=== PATIENT | female | born 1975 | race Caucasian/White ===

== ENCOUNTER 2020-10-26 23:56 | Emergency (ER) | payer SELFPAY ==
[2020-10-27 00:01] VITALS: BP 145/109; PULSE 110; RESP 22; TEMP 36.6; O2SAT 95; BMI 33.7
--- NOTE | 2020-10-27 00:03 | XRR_ITS ---
PROCEDURE INFORMATION: Exam: XR Left Ankle Exam date and time: 10/27/2020 12:15 AM Age: 45 years old Clinical indication: Injury or trauma; Fall; Blunt trauma; Ankle; Left TECHNIQUE: Imaging protocol: XR Left ankle. Views: 3 or more views. COMPARISON: No relevant prior studies available. FINDINGS: Bones/joints: There is an acute nondisplaced oblique fracture of the distal left fibular diametaphysis. Soft tissues: Normal. XR/XR ankle LT min 3V* [id number] IMPRESSION: Acute nondisplaced oblique fracture of the distal left fibular diametaphysis.
[2020-10-27 00:07] VITALS: PULSE 68
--- NOTE | 2020-10-27 00:10 | ED_ITS ---
HPI - Extremity Problem General: Chief complaint: Extremity Injury, Lower Stated complaint: LEG INJURY Time Seen by Provider: 10/26/20 23:59 Source: patient and EMS Mode of arrival: EMS Limitations: no limitations History of Present Illness: HPI Narrative: 45-year-old female states she is on sidewalk on the side of the hill and tripped and fell. States she twisted her left ankle and felt a pop. She states she is not able to stand or bear any weight on that left leg. Denies any other injuries. Rates her pain a 7 out of 10. Associated symptoms: Deny chest pain, fever(s) or rash Review of Systems Const: Denies: fever(s), chills, body aches or change in appetite Eyes: Denies: blurry vision or eye discomfort ENMT: Denies: throat pain or dental pain Card: Denies: chest pain Resp: Denies: dyspnea GI: Denies: abdominal pain, nausea, vomiting or diarrhea : Denies: dysuria Musc: Reports: joint pain; Denies: neck pain or back pain Skin/Breast: Denies: rash Neuro: Denies: headache(s) Psych: Denies: depression Leland/Lymph: Denies: easy bruising All/Imm: Denies: urticaria Physical Exam Const: COMMON NORMALS: no acute distress, patient oriented x3 and healthy appearing HENMT: COMMON NORMALS: normocephalic and atraumatic HEAD & SCALP: normocephalic and atraumatic Eye: COMMON NORMALS: Equal, round and reactive pupils present and EOMs intact bilaterally PUPIL: Yes Equal, round and reactive pupils present Neck/C-Spine: COMMON NORMALS: full ROM and supple Chest: COMMONS NORMALS: normal inspection of the chest and normal palpation of entire chest wall Resp: COMMON NORMALS: normal respiratory effort, No retractions, No use of accessory muscles and clear to auscultation bilaterally AUSCULTATION: clear to auscultation bilaterally Cardio: COMMON NORMALS: regular rate, regular rhythm and No murmurs present (Cardio) RATE: regular rate RHYTHM: regular rhythm GI: COMMON NORMALS: Normal to inspection, nondistended, normoactive bowel sounds present, Soft to palpation, non-tender and no masses PALPATION: Yes Soft to palpation Extremity: NARRATIVE EXTREMITY EXAM: Tenderness and swelling to left lateral ankle distal pulses intact no dislocation Neuro: COMMON NORMALS: patient oriented x3, moves all extremities and no focal motor deficits Psych: COMMON NORMALS: mental status grossly normal, Normal thought process present and cooperative THOUGHT PROCESS: Normal thought process present Skin: COMMON NORMALS: no rashes or lesions noted and no wounds GENERAL SKIN EXAM: no rashes or lesions noted Course 2 Vital Signs: Vital signs: Vital Signs Temperature 97.8 F 10/27/20 00:01 Pulse Rate 68 10/27/20 00:07 Respiratory Rate 22 H 10/27/20 00:01 Blood Pressure 145/109 10/27/20 00:01 Pulse Oximetry 95 10/27/20 00:01 MDM - Extremity (Nontraumatic) MDM Narrative: Medical decision making narrative: Kristi presents with a distal fibula fracture from a fall. She has no other signs of major injury from her fall. We will place her in a posterior splint with stirrup she is to follow-up with orthopedics. She understands agrees to plan. Imaging Data^: Xray Ortho: Attestation: I personally reviewed and interpreted this imaging study as follows: My impression: distal fibular fx Discharge Plan Discharge Patient Disposition: Home Clinical Impression: Ankle fracture Qualifiers: Encounter type: initial encounter Fracture type: closed Laterality: left Qualified Code(s): S82.892A - Other fracture of left lower leg, initial encounter for closed fracture Condition: Stable Prescriptions: [place] 5-325 mg tablet 1 tab PO Q6H PRN (Reason: pain) Qty: 14 RF: 0 Discharge Orders: Discharge ED (Routine); Ordered 10/27/20 Ordered By: Fatou Hernandez Referrals: Delilah Dickinson MD [Physician] - 1-3 days Ruben Cano [Primary Care Provider] - Discharge Diet: Advance as tolerated Discharge Activity: Resume usual activity Patient Instructions: Ankle Fracture (ED), Opioid Safety Coding Level of Care Code ED Plush Weaver for Jamelg Fwd Exam Comprehensive
[2020-10-27 01:00] VITALS: RESP 18; O2SAT 97
[2020-10-27] MEDS: HYDROmorphone 1 mg/mL INJ 1 mL IVP (01:00)
[2020-10-27 01:02] VITALS: BP 142/98; PULSE 98; RESP 16; O2SAT 94
[2020-10-27 01:12] VITALS: BP 138/88; PULSE 68; RESP 16; O2SAT 96
--- NOTE | 2020-10-28 12:20 | DCPLANNER ---
manager news had message to schedule a follow up appointment for patient with ortho. manager news called the ortho clinic, spoke with Ashely, gave clinic patients information. manager news was told that patients information would be printed and reviewed. Clinic will call patient with appointment information.
--- NOTE | 2020-10-29 07:53 | DCPLANNER ---
Patient has a follow up appointment scheduled for October at 10:[address] Dickinson. Clinic will call patient with appointment information.
--- NOTE | 2020-12-05 09:26 | DCPLANNER ---
Patient had a follow up appointment scheduled for 10.31.[address] Dickinson at ortho. Patient did attend appointment.
== END 2020-10-27 01:19 | disposition home or self-care (01) ==
PROVIDERS: Emergency Provider Emergency Medicine; PCP Family Medicine
DX: S82.832A Other fracture of upper and lower end of left fibula, initial encounter for closed fracture (principal); X50.1XXA Overexertion from prolonged static or awkward postures, initial encounter
CPT/HCPCS: 29515; 73610; 96374; 99283; E0114; J1170

== ENCOUNTER → 2020-10-31 11:11 | Outpatient (BNVA) | payer SELFPAY | PROVIDERS: PCP Family Medicine; Referring Provider Family Medicine; Visit Provider Specialist | DX: S82.832D Other fracture of upper and lower end of left fibula, subsequent encounter for closed fracture with routine healing (principal); X58.XXXD Exposure to other specified factors, subsequent encounter | CPT/HCPCS: 73610 ==

== ENCOUNTER 2020-10-31 15:19 | Outpatient (CLI) | payer SELFPAY | END 2020-10-31 15:20 | disposition home or self-care (01) | LOC: SPT 15:20 | PROVIDERS: PCP Family Medicine; Visit Provider Specialist | DX: Z46.89 Encounter for fitting and adjustment of other specified devices (principal); S82.892D Other fracture of left lower leg, subsequent encounter for closed fracture with routine healing; X58.XXXD Exposure to other specified factors, subsequent encounter | CPT/HCPCS: 97760; L4361 ==

== ENCOUNTER 2022-10-01 21:12 | Inpatient (IN) | payer MEDICAID, SELFPAY ==
[2022-10-01 21:13] VITALS: BMI 42.1
--- NOTE | 2022-10-01 21:13 | W.ED.ABDPA2 ---
HPI - Abdominal Pain General: Chief Complaint: Abdominal Pain Stated Complaint: ABD PAIN Time Seen by Provider: 10/01/22 21:13 History of Present Illness: Ms. Villar is a 47-year-old lady presenting to the emergency department for evaluation of abdominal pain. She reports onset of symptoms yesterday and has subsequently been worsening. Pain is right lower quadrant and worse with movement and palpation. She notes associated nausea and subjective fevers. Intensity symptoms is severe. Course has worsened. Temporary relief with EMS administered fentanyl and Zofran worse again with moving over to ED bed. No other specific changes in health, exacerbating, or alleviating factors identified. Onset (ago): day(s) Pain Consistency: constant Location: RLQ Severity: severe Quality: sharp Radiation: none Migration to: no migration Exacerbating factors: movement Relieving factors: nothing Associated Symptoms: Reports chills and nausea Review of Systems General: Reports: 10 or more systems reviewed and unremarkable except in HPI and below Const: Reports: chills GI: Reports: nausea PFSH ED PFSH: Medical History (Updated 10/09/22 @ 14:48 by TANIA Chopra) Acute appendicitis Dental abscess Fracture of ankle, lateral malleolus, left, closed HTN (hypertension) Leukocytosis Perforated appendicitis Surgical History (Updated 10/01/22 @ 21:22 by Tylor Maya MD) H/O: hysterectomy Family History Father CAD (coronary artery disease) Hypertension Mother CAD (coronary artery disease) Hypertension Seizures Social History Smoking and tobacco status: current some day smoker Alcohol intake: former Physical Exam Const: COMMON NORMALS: alert GENERAL APPEARANCE: cooperative, well developed, in distress (Uncomfortable due to pain) and ill appearing HENMT: COMMON NORMALS: normocephalic and atraumatic HEAD & SCALP: normocephalic and atraumatic Eye: COMMON NORMALS: conjunctivae normal CONJUNCTIVA: Yes conjunctivae normal SCLERA: sclerae normal Neck/C-Spine: COMMON NORMALS: supple GENERAL: Yes trachea midline Resp: COMMON NORMALS: clear to auscultation bilaterally EFFORT & INSPECTION: Yes able to speak in complete sentences AUSCULTATION: clear to auscultation bilaterally Cardio: COMMON NORMALS: regular rhythm RATE: tachycardic RHYTHM: regular rhythm GI: COMMON NORMALS: Soft to palpation PALPATION: Yes Soft to palpation, Yes Tenderness to palpation present (GI), Yes Guarding due to palpation present (GI) and No Rigid due to palpation Extremity: GENERAL: Yes normal exam except as noted and No edema Neuro: COMMON NORMALS: moves all extremities SENSORIUM/ORIENTATION: Yes alert and No Orientation impaired Psych: COMMON NORMALS: mental status grossly normal and Normal thought process present THOUGHT PROCESS: Normal thought process present Course Vital Signs: Vital signs: Vital Signs Temperature 97.7 F 10/07/22 12:00 Pulse Rate 84 10/07/22 12:00 Respiratory Rate 18 10/07/22 12:21 Blood Pressure 143/91 10/07/22 12:00 Pulse Oximetry 97 10/07/22 12:00 Oxygen Delivery Me thod 10/07/22 12:00 Oxygen Flow Rate 3 10/06/22 08:25 MDM - Abdominal Pain Medical Decision Making 47-year-old lady presenting with right lower quadrant pain. Tenderness to palpation with guarding and localized peritonitis however without evidence of acute surgical abdomen as noted. She is quite uncomfortable due to pain. Patient is nontoxic. Labs notable for leukocytosis and hemoconcentration. Mild evidence of dehydration on metabolic panel. Chest x-ray with no lobar consolidation or pneumothorax. CT demonstrates appendix with microperforation. Discussed case with general surgery on-call. Patient to be admitted to the hospitalist service for likely conservative management though may need operative management if progression. This was discussed with the patient. Patient treated with analgesia and antibiotics as well as IV fluids with some improvement. The results of ED evaluation were discussed with the patient including plan for admission due to requirement for level of care not available if discharged to prevent significant worsening/deterioration. Patient agreeable with plan. Discussed with hospitalist service who was agreeable to admit patient. Medical Records I reviewed the patient's medical records. Lab Data I reviewed the patient's lab results. 10/01/22 20:04 10/01/22 20:04 Labs/Radiology: Radiology Impressions Chest X-Ray 10/01/22 21:20 IMPRESSION: 1. Mild cardiomegaly suspected. 2. Negative for infiltrate Venous Duplex 10/03/22 10:15 IMPRESSION: No evidence of deep vein thrombosis, right lower extremity. Abdomen/Pelvis CT 10/05/22 11:21 IMPRESSION: 1. As indicated on the prior examination ruptured appendicitis with persistent abscess at the rupture site measuring 3.0 x 2.1 cm. 2. Additional development of a large RIGHT lower quadrant abscess measuring 5.0 x 9.4 cm. 3. Dilated RIGHT ureter extends along the lateral aspect of the abscess cavity. The ureter is dilated as a sympathetic response to the adjacent abscess. Notified Celestino Weber DO at 10/05/2022 2:[address] 10/06/22 12:30 IMPRESSION: 1. Uncomplicated 8 [place] pelvic pigtail drain placement. 2. Recommend draining flushing 8-10 cc normal saline 1-2 times per day Laboratory Results WBC 14.2 10^3/uL (4.0-10.0) H 10/01/22 20:04 RBC 5.27 10^6/uL (4.1-5.3) 10/01/22 20:04 Hgb 15.4 g/dL (11.5-15.3) H 10/01/22 20:04 Hct 47.5 % (37.0-47.0) H 10/01/22 20:04 MCV 90.1 fl (81-99) 10/01/22 20:04 MCH 29.2 pg (28.0-34.0) 10/01/22 20:04 MCHC 32.4 g/dL (30.0-36.0) 10/01/22 20:04 RDW 12.5 % (12.1-15.1) 10/01/22 20:04 Plt Count 335 10^3/cmm (130-400) 10/01/22 20:04 MPV 10.6 fL (7.4-10.4) H 10/01/22 20:04 Neut % (Auto) 86.8 % 10/01/22 20:04 Lymph % (Auto) 6.1 % 10/01/22 20:04 Whiteside % (Auto) 6.1 % 10/01/22 20:04 Eos % (Auto) 0.4 % 10/01/22 20:04 Baso % (Auto) 0.2 % 10/01/22 20:04 Neut # (Auto) 12.32 10^3/uL (1.8-7.7) H 10/01/22 20:04 Lymph # (Auto) 0.9 10^3/uL (0.8-4.8) 10/01/22 20:04 Whiteside # (Auto) 0.9 10^3/uL (0.2-0.9) 10/01/22 20:04 Eos # (Auto) 0.1 10^3/uL (0.0-0.8) 10/01/22 20:04 Baso # (Auto) 0.0 10^3/uL (0.0-0.1) 10/01/22 20:04 Nucleated RBC % (auto) 0 % 10/01/22 20:04 Nucleated RBCs # 0.0 /100WBC 10/01/22 20:04 Sodium 138 mmol/L (136-145) 10/01/22 20:04 Potassium 4.1 mmol/L (3.5-5.1) 10/01/22 20:04 Chloride 103 mmol/L (98-107) 10/01/22 20:04 Carbon Dioxide 21 mmol/L (22-29) L 10/01/22 20:04 Anion Gap 18.1 (5-19) 10/01/22 20:04 BUN 14 mg/dL (6-20) 10/01/22 20:04 Creatinine 1.0 mg/dL (0.5-0.9) H 10/01/22 20:04 GFR Calculation 60.0 mL/min (90-130) L 10/01/22 20:04 Glucose 107 mg/dL (65-115) 10/01/22 20:04 Calculated Osmolality 287 mOsm/kg (285-295) 10/01/22 20:04 Lactic Acid 1.2 mmol/L (0.5-2.2) 10/01/22 21:40 Calcium 9.3 mg/dL (8.5-10.5) 10/01/22 20:04 Iron 30 ug/dL (37-145) L 10/01/22 20:04 TIBC 318 mcg/dl 10/01/22 20:04 % Saturation 9.4 % (20-50) L 10/01/22 20:04 Unsat Iron Binding 288 ug/dL (112-347) 10/01/22 20:04 Total Bilirubin 1.0 mg/dL (0.15-1.2) 10/01/22 20:04 AST 15 U/L (0-32) 10/01/22 20:04 ALT 20 U/L (0-33) 10/01/22 20:04 Alkaline Phosphatase 147 U/L (35-105) H 10/01/22 20:04 Total Protein 7.9 g/dL (6.6-8.7) 10/01/22 20:04 Albumin 4.2 g/dL (3.5-5.2) 10/01/22 20:04 Globulin 3.7 g/dL (1.3-4.6) 10/01/22 20:04 Lipase 14 U/L (13-60) 10/01/22 20:04 Vitamin B12 323 pg/mL (232-1245) 10/01/22 20:04 Folate 12.9 ng/mL (4.8-37.3) 10/01/22 21:40 Procalcitonin 0.13 ng/mL (0-0.5) 10/01/22 20:04 TSH 1.41 uIU/mL (0.27-4.20) 10/01/22 20:04 Discharge Plan Discharge Patient Disposition: Admitted As Inpatient Admit Provider: Johnathan Sifuentes Clinical Impression: Acute appendicitis, Abdominal pain, Sepsis Condition: Stable Discharge Diet: Regular Discharge Activity: Limit activity as instructed Coding Level of Care Code ED Special Projects Manager for Andi Velasquez
[2022-10-01 21:16] VITALS: BP 136/100; RESP 16; TEMP 36.7; O2SAT 96
--- NOTE | 2022-10-01 21:20 | CTR_ITS ---
PROCEDURE INFORMATION: Exam: CT Abdomen And Pelvis With Contrast Exam date and time: 10/01/2022 9:32 PM Age: 47 years old Clinical indication: Abdominal pain; Localized; Right lower quadrant (rlq); Prior surgery; Surgery type: Gb. Hysterectomy; Patient HX: Intractable rlq pain with fever; Additional info: Rlq pain, severe TECHNIQUE: Imaging protocol: Computed tomography of the abdomen and pelvis with contrast. Radiation optimization: All CT scans at this facility use at least one of these dose optimization techniques: automated exposure control; mA and/or kV adjustment per patient size (includes targeted exams where dose is matched to clinical indication); or iterative reconstruction. Contrast material: OMNI 350; Contrast volume: 100 ml; Contrast route: INTRAVENOUS (IV); REPORTING DATA: Count of CT and Cardiac NM exams in prior 12 months: This patient has received 0 known CTs and 0 known cardiac nuclear medicine studies in the 12 months prior to the current study. COMPARISON: ES surgery / GI images 11/23/2016 9:48 AM RADIATION DOSE METRICS: Total DLP (mGy-cm): 773.99 FINDINGS: Lungs: Several right lower lobe calcified granulomas. Liver: Normal. No mass. Gallbladder and bile ducts: Cholecystectomy. Pancreas: Normal. No ductal dilation. Spleen: Normal. No splenomegaly. Adrenal glands: Normal. No mass. Kidneys and ureters: Normal. No hydronephrosis. Stomach and bowel: Unremarkable. No obstruction. No mucosal thickening. Appendix: Appendix dilated to 10 mm with surrounding edema and possible minimal extraluminal air suggestive of acute appendicitis with microperforation, negative for abscess. Intraperitoneal space: Unremarkable. No free air. No significant fluid collection. Vasculature: Unremarkable. No abdominal aortic aneurysm. Lymph nodes: Unremarkable. No enlarged lymph nodes. Urinary bladder: Unremarkable as visualized. Reproductive: Unremarkable as visualized. Bones/joints: Unremarkable. No acute fracture. Soft tissues: Unremarkable. CT/CT abdomen pelvis w con* [id number] IMPRESSION: 1. Appendix dilated to 10 mm with surrounding edema and possible minimal extraluminal air suggestive of acute appendicitis with microperforation, negative for abscess. 2. Several right lower lobe calcified granulomas. 3. Cholecystectomy.
--- NOTE | 2022-10-01 21:20 | XRR_ITS ---
PROCEDURE INFORMATION: Exam: XR Chest Exam date and time: 10/01/2022 9:24 PM Age: 47 years old Clinical indication: Other: High heart rate, ; additional info: Tachycardia, right side pain TECHNIQUE: Imaging protocol: Radiologic exam of the chest. Views: 1 view. COMPARISON: No relevant prior studies available. FINDINGS: Lungs: Unremarkable. No consolidation. Pleural spaces: Unremarkable. No pleural effusion. No pneumothorax. Heart/Mediastinum: Mild cardiomegaly suspected. Bones/joints: Unremarkable. XR/XR chest 1V portable [id number] IMPRESSION: 1. Mild cardiomegaly suspected. 2. Negative for infiltrate
[2022-10-01 21:27] LABS: Basophils % 0.2 %; Eosinophils # 0.1 10^3/uL (0.0-0.8); Eosinophils % 0.4 %; Hematocrit 47.5 % (37.0-47.0); Hemoglobin 15.4 g/dL (11.5-15.3); Lymphocytes # 0.9 10^3/uL (0.8-4.8); Lymphocytes % 6.1 %; Mean Corpuscular HGB Conc 32.4 g/dL (30.0-36.0); Mean Corpuscular Hemoglobin 29.2 pg (28.0-34.0); Mean Corpuscular Volume 90.1 fl (81-99); Mean Platelet Volume 10.6 fL (7.4-10.4); Monocytes # 0.9 10^3/uL (0.2-0.9); Monocytes % 6.1 %; Neutrophils # 12.32 10^3/uL (1.8-7.7); Neutrophils % 86.8 %; Nucleated Red Blood Cells % 0 %; Platelet Count 335 10^3/cmm (130-400); Red Blood Count 5.27 10^6/uL (4.1-5.3); Red Cell Distribution Width 12.5 % (12.1-15.1); White Blood Count 14.2 10^3/uL (4.0-10.0)
[2022-10-01] MEDS: HYDROmorphone 1 mg/mL INJ 1 mL 0.5 MG IVP (21:29)
[2022-10-01 21:40] LABS: Alanine Aminotransferase 20 U/L (0-33); Albumin Level 4.2 g/dL (3.5-5.2); Alkaline Phosphatase 147 U/L (35-105); Anion Gap 18.1 (5-19); Aspartate Amino Transferase 15 U/L (0-32); Blood Urea Nitrogen 14 mg/dL (6-20); Calcium 9.3 mg/dL (8.5-10.5); Carbon Dioxide 21 mmol/L (22-29); Chloride 103 mmol/L (98-107); Globulin 3.7 g/dL (1.3-4.6); Glucose 107 mg/dL (65-115); Lipase 14 U/L (13-60); Osmolality Calculated 287 mOsm/kg (285-295); Potassium 4.1 mmol/L (3.5-5.1); Sodium 138 mmol/L (136-145); Total Protein 7.9 g/dL (6.6-8.7)
[2022-10-01] MEDS: iohexol 350 mg/mL 500 mL Btl (per mL) IV (21:40)
[2022-10-01] MEDS: sodium chloride 0.9% 1,000 ML 999 ML IV (21:53)
[2022-10-01] MEDS: piperacillin-tazobactam 4.5 GM in sodium chloride 0.9% (plus) 50 ML IV (21:53)
[2022-10-01 21:54] VITALS: RESP 16
[2022-10-01] MEDS: fentaNYL 50 mcg/mL INJ 2mL 100 MCG IVP (21:54)
[2022-10-01 22:03] VITALS: BP 111/75; PULSE 113; RESP 18; O2SAT 91
[2022-10-01 22:20] VITALS: BP 122/68; O2SAT 93
[2022-10-01 22:30] LABS: Lactic Sepsis W/Reflex 1.2 mmol/L (0.5-2.2)
[2022-10-01] MEDS: sodium chloride 0.9% 1,000 ML 125 ML IV (23:02)
--- NOTE | 2022-10-01 23:04 | P.HP_ITS ---
Providers/Chief Complaint Admitting Physician: Johnathan Sifuentes MD Primary Care Provider: Ruben Cano Chief Complaint: ABD PAIN History of Present Illness Kristi Villar is a 47 year old female with no significant past medical history other than hypertension not on medications presents to the ER today because of ongoing abdominal pain, nausea and vomiting for last 1 day along with subjective fever. Patient cannot recollect when she had a last bowel movement. In the ER patient was found to have tachycardia and CT abdomen pelvis was consistent with acute appendicitis with microperforation. Surgery was consulted and medicine team was asked for admission for further evaluation and management. Review of Systems General: Reports: 10 or more systems reviewed and unremarkable except in HPI and below Const: Denies: fever(s), chills, body aches, change in appetite, change in weight, malaise, night sweats, diaphoresis, change in sleep pattern, daytime sleepiness or snoring Eyes: Denies: change in vision, blurry vision, photophobia, eye discomfort or eye discharge ENMT: Denies: throat pain, enlarged tonsils, hoarseness, mouth pain, oral sores, dry mouth, tinnitus, nasal congestion or post nasal drip Card: Denies: chest pain, palpitations, irregular heart rhythm, edema, s welling of feet/ankles, lightheadedness, syncope, pre-syncope, dyspnea on exertion, orthopnea, leg pain with exertion or acrocyanosis Resp: Denies: dyspnea, productive cough, non-productive cough, wheezing, stridor, pain on inspiration, change in phlegm color, hemoptysis or chest congestion GI: Denies: abdominal pain, nausea, vomiting, hematemesis, coffee ground emesis, dysphagia, heartburn, diarrhea, constipation, bloating, GI cramping, change in bowel habits, pain on defecation, hematochezia or melena : Denies: flank pain, dysuria, urinary frequency, urinary urgency, urinary hesitancy, nocturia or hematuria Musc: Denies: neck pain, back pain, extremity pain, joint pain, joint swelling, joint redness, joint stiffness or limited range of motion Neuro: Denies: headache(s), numbness in extremities, weakness in extremities, sensory changes, lack of coordination, difficulty walking, frequent falls, dizziness, vertigo, confusion, Slurred speech present, difficulty communicating thoughts or seizure-like activity Psych: Denies: anxiety, depression, mood swings, panic attacks, hopelessness or irritability Endo: Denies: polyuria, polydipsia, tired all the time, cold intolerance, excessive sweating, flushing or heat intolerance Leland/Lymph: Denies: easy bruising or easy bleeding All/Imm: Denies: tongue swelling, facial swelling or acute wheezing Medications/Allergies Home Medications Medication Instructions Recorded Confirmed Last Taken Type Cam Walker #1 ea 10/31/20 10/31/20 Unknown Rx Allergies Allergy/AdvReac Type Severity Reaction Status Date / Time morphine Allergy ADR-Gastrointestinal Verified 10/31/20 11:31 Upset PFSH Acute PFSH: Medical History (Updated 10/01/22 @ 23:17 by Johnathan Sifuentes MD) Dental abscess HTN (hypertension) Surgical History (Updated 10/01/22 @ 21:22 by Tylor Maya MD) H/O: hysterectomy Family History Father CAD (coronary artery disease) Hypertension Mother CAD (coronary artery disease) Hypertension Seizures Social History Smoking and tobacco status: current some day smoker Alcohol intake: former Vitals/I&O/Wt Last Vital Signs Temp 98.1 F 10/01/22 21:16 Pulse 113 H 10/01/22 22:03 Resp 18 10/01/22 22:03 BP 122/68 10/01/22 22:20 Pulse Ox 93 10/01/22 22:20 O2 Del Method 10/01/22 22:20 O2 Flow Rate 2 10/01/22 22:20 10/01/22 10/01/22 10/02/22 14:59 22:59 06:59 Intake Total 699.35 / 699.35 Balance 699.35 / 699.35 Weight last 48 hrs Weight 107.955 kg Physical Exam Narrative: General: In acute distress because of abdominal pain and nausea, AOx3 HEENT: PERRLA, pupils bilaterally equal and reactive Chest: Normal vesicular breath sounds, no added sounds, equal good air entry bilaterally CVS: S1-S2 regular, no murmurs, no tachycardia, no gallops, no rubs Abdomen: Soft, tender in right lower quadrant, guarding present, no rebounding, no organomegaly, bowel sounds present but sluggish Neuro: No focal deficits, no facial deformity, AO x3, power 5/5 in all limbs Sepsis: Date exam was performed: 10/01/22 Time exam was performed: 23:16 Data 10/01/22 20:04 10/01/22 20:04 Micro: Microbiology 10/01/22 21:40 Blood Culture - Preliminary Blood SPECIMEN COLLECTED 10/01/22 21:40 Blood Culture - Preliminary Blood SPECIMEN COLLECTED A&P Assessment and plan (1) Sepsis: Present on admission. Ruled in with tachycardia, fever, leukocytosis. Lactate negative. Does not require sepsis bolus as patient is currently hemodynamically stable. Did receive half of the sepsis bolus. CT abdomen pelvis appreciated. (2) Acute appendicitis: As seen on CT abdomen pelvis with microperforation without abscess. Surgery consulted. Possible plan for conservative treatment. Check blood culture, urine Legionella and bacterial antigen, procalcitonin, urinalysis, urine culture. NPO. Start on D5 NS at 75 cc/h. Zosyn empirically. Dilaudid 0.5 every 4 hours as needed for pain control Out of bed for early ambulation. Serial abdominal examination Plan Full code. NPO. Famotidine for PUD prophylaxis CT for DVT prophylaxis. Hold off on medical prophylaxis given concern for possible OR. Attestations Medical Necessity Statement*: Admission for more than 2 midnights for management of sepsis in setting of acute appendicitis with microperforation without abscess Diagnoses Sepsis A41.9 Acute appendicitis K35.80
[2022-10-01 23:22] VITALS: BP 160/87; PULSE 120; RESP 22; TEMP 36.9; O2SAT 100
[2022-10-01 23:51] LABS: Procalcitonin 0.13 ng/mL (0-0.5)
[2022-10-01 23:55] LABS: Thyroid Stimulating Hormone 1.41 uIU/mL (0.27-4.20)
[2022-10-02] VITALS (12 sets, daily range): BP systolic 113–130; BP diastolic 74–89; PULSE 99–128; RESP 14–28; TEMP 36.6–39.2; O2SAT 96–100; BMI 42.1
[2022-10-02 00:04] LABS: Folate Level 12.9 ng/mL (4.8-37.3)
[2022-10-02] MEDS: famotidine 20 mg/2 mL INJ IVP ×3 (00:45→23:38)
[2022-10-02] MEDS: HYDROmorphone 1 mg/mL INJ 1 mL 0.5 MG IVP ×4 (00:45→20:30)
[2022-10-02 00:49] LABS: Iron 30 ug/dL (37-145); Percent Saturation 9.4 % (20-50); Total Iron Binding Capacity 318 mcg/dl; Unsaturated Iron Binding 288 ug/dL (112-347)
[2022-10-02 01:04] LABS: Vitamin B12 323 pg/mL (232-1245)
[2022-10-02] MEDS: acetaminophen 325 mg Tablet 650 MG PO ×2 (03:25→14:43)
[2022-10-02] MEDS: piperacillin-tazobactam 3.375 GM in sodium chloride 0.9% (plus) 50 ML IV ×3 (05:26→22:35)
[2022-10-02 06:10] LABS: Basophils % 0.2 %; Eosinophils % 0.1 %; Hematocrit 41.3 % (37.0-47.0); Hemoglobin 13.4 g/dL (11.5-15.3); Lymphocytes # 0.9 10^3/uL (0.8-4.8); Lymphocytes % 8.3 %; Mean Corpuscular HGB Conc 32.4 g/dL (30.0-36.0); Mean Corpuscular Hemoglobin 29.5 pg (28.0-34.0); Mean Platelet Volume 10.7 fL (7.4-10.4); Monocytes # 0.4 10^3/uL (0.2-0.9); Neutrophils # 8.98 10^3/uL (1.8-7.7); Neutrophils % 87.2 %; Nucleated Red Blood Cells % 0 %; Platelet Count 253 10^3/cmm (130-400); Red Blood Count 4.54 10^6/uL (4.1-5.3); Red Cell Distribution Width 12.6 % (12.1-15.1); White Blood Count 10.3 10^3/uL (4.0-10.0)
[2022-10-02 06:22] LABS: Estmated Average Glucose 114; Hemoglobin A1C 5.6 % (4.0-6.0)
[2022-10-02 06:33] LABS: Alanine Aminotransferase 15 U/L (0-33); Albumin Level 3.4 g/dL (3.5-5.2); Alkaline Phosphatase 121 U/L (35-105); Anion Gap 17.5 (5-19); Aspartate Amino Transferase 13 U/L (0-32); Blood Urea Nitrogen 14 mg/dL (6-20); Calcium 8.7 mg/dL (8.5-10.5); Carbon Dioxide 18 mmol/L (22-29); Chloride 107 mmol/L (98-107); Chol HDL Ratio 2.35 mg/dL (0.0-4.40); Cholesterol 122 mg/dL (0-200); Globulin 3.1 g/dL (1.3-4.6); Glomerular Filtration Rate 67.7 mL/min (90-130); Glucose 92 mg/dL (65-115); HDL Cholesterol 52 mg/dL (60-100); LDL Cholesterol Calculated 61 mg/dL (50-129); Magnesium 1.8 mg/dL (1.7-2.3); Osmolality Calculated 288 mOsm/kg (285-295); Phosphorus 3.1 mg/dL (2.5-4.5); Potassium 3.5 mmol/L (3.5-5.1); Sodium 139 mmol/L (136-145); Total Bilirubin 1.1 mg/dL (0.15-1.2); Total Protein 6.5 g/dL (6.6-8.7); Triglycerides 45 mg/dL (0-150); VLDL Cholestrol Calculation 9 mg/dL (0-30)
--- NOTE | 2022-10-02 06:55 | ECG_ITS ---
[facility] Test Date: 2022-10-02 Pat Name: Kristi Villar Department: Room: 269 Gender: Female Games Manager: : 1975 Requested By: Johnathan Sifuentes Order Number: [id number] Melissa MD: Angélica Dean M.D. Measurements Intervals [place] Rate: 102 P: 50 MD: 152 QRS: -1 QRSD: 82 T: 29 QT: 357 QTc: 467 Interpretive Statements SINUS TACHYCARDIA POSSIBLE LEFT ATRIAL ENLARGEMENT [-0.1mV P-WAVE IN V1/V2] ABNORMAL RHYTHM ECG No previous ECG available for comparison Electronically Signed On 10-02-2022 16:47:08 TRADE CLERK by Angélica Dean M.D. [id number]
--- NOTE | 2022-10-02 08:14 | PC.PHAR ---
pt states she takes care of her own medications-pt states she ran out of atenolol 50mg q12h about 3 weeks ago-willie toure states last filled 02/22/22 30d/s [facility] states it has refills-
--- NOTE | 2022-10-02 09:43 | PM.PN ---
Subjective Subjective: Reports today continued pain. She says that she did not get much rest last night. Says that she has been passing some gas, but reports this also increases her pain. Says that she is waiting for surgery to come by and see her. Vitals/I&O/Wt Last Vital Signs Temp 99.0 F 10/02/22 07:34 Pulse 103 H 10/02/22 08:00 Resp 15 10/02/22 07:34 BP 113/74 10/02/22 07:34 Pulse Ox 97 10/02/22 08:00 O2 Del Method 10/02/22 08:00 O2 Flow Rate 2 10/02/22 08:00 10/01/22 10/02/22 10/02/22 22:59 06:59 14:59 Intake Total 699.35 / 699.35 300 / 999.35 1000 / 1000 Output Total 250 / 250 Balance 699.35 / 699.35 50 / 749.35 1000 / 1000 Weight last 48 hrs Weight 238 lb Physical Exam Narrative: General: Patient resting upon entering the room. She does appear uncomfortable while awake. HEENT: PERRLA, pupils bilaterally equal and reactive Chest: Lungs clear to auscultation. CVS: Heart rate and rhythm regular. No rubs or murmurs. Abdomen: Soft, tender in right lower quadrant, guarding present, no rebounding, no organomegaly, bowel sounds present but sluggish Neuro: No focal sensory or motor deficits. Sepsis: Date exam was performed: 10/01/22 Time exam was performed: 23:16 Data 10/02/22 05:16 10/02/22 05:16 Micro: Microbiology 10/01/22 21:40 Blood Culture - Preliminary Blood SPECIMEN COLLECTED 10/01/22 21:40 Blood Culture - Preliminary Blood SPECIMEN COLLECTED A&P Assessment and plan (1) Sepsis: (2) Acute appendicitis: Plan 47 y.o F admitted with sepsis 2/2 acute appendicitis. Continue close inpatient monitoring. CT abdomen CT abdomen and pelvis demonstrated acute appendicitis with microperforation. No abscess was seen. Surgery is consulted. Appreciate their recommendations. Vitals are currently stable. Afebrile, BP stable. Mild tachycardia. Currently undergoing conservative management with IV fluids and Zosyn. Labs are improved today. White count down to 10.3. Lactate normal. Blood cultures are pending. Check blood culture, urine Legionella and bacterial antigen, procalcitonin, urinalysis, urine culture. Continue D5 NS at 75 cc/h. Dilaudid 0.5 every 4 hours as needed for pain control Out of bed for early ambulation. Serial abdominal examination. NPO until surgical evaluation. Code Status: Full IVF: D5NS 75 DVT PPx: SCD's GI PPx: Famotidine ABx: Zosyn Diet: NPO Disposition: Med/Surg. Attestations Medical Necessity Statement*: Admission for more than 2 midnights for management of sepsis in setting of acute appendicitis with microperforation without abscess Diagnoses Sepsis A41.9 Acute appendicitis K35.80
[2022-10-02] MEDS: dextrose 5%-sod chloride 0.9% 1,000 ML 75 ML IV ×2 (10:59→22:35)
--- NOTE | 2022-10-02 11:02 | PC.CHAP ---
Pastoral Care Encounter/Spiritual Assessment Type of Contact [] Declined auto clutch rebuilder visit [] Patient/Family/Request visit [] Outpatient visit [] Follow-up visit [] Physician referral [] Code/Alert x[] Routine visit [] Staff referral [] Actively dying [x] Patient sleeping [] Family support [] [] Out of room [] Palliative care [] [] Receiving care in room [] Pre-surgical visit [] Trauma [] Long length of stay [] ICU visit [] Other: Relational/Emotional Strength [] Patient feels connected with others/family/visitors/staff [] Distress [] Loneliness/isolation [] Abandonment Spirituality of Patient [] Person of Justine [] Attends Methodist of their Justine [] Believes in Prayer [] Reads Bible or Sikh materials [] There are Spiritual issues to be addressed Armored Car Guard Interventions [] Prayer [] Active listening [] Non-anxious presence [] Spiritual/emotional support [] Crisis/trauma care [] Spiritual counseling [] Bereavement support [] Provided bereavement packet [] Provided Bible/devotional materials [] Provided toy/stuffed animal, coloring book to patient or family member [] Provided Communion [] Anointing/[place] [] Salvation [] Completed spiritual assessment [] Other: Impact on Illness or Injury [] Angry [] Fearful [] Anxious [] Often cries [] Exhaustion [] Unable to work [] Unable to attend orthodoxy [] Unable to walk/stand [] Unable to read [] Unable to drive [] Unable to eat/drink [] Unable to sleep [] Unable to be with family [] Patient intubated [] Other: Summary Time spent with patient
--- NOTE | 2022-10-02 11:27 | P.CONIM_ITS ---
Providers/Reason For Consult Consulting Physician/Specialty*: Emergency room physician Reason for Consult*: Acute perforated appendicitis Attending Physician: Ruben Ruvalcaba DO Primary Care Provider: Ruben Cano History of Present Illness History of Present Illness Kristi Villar is a 47 year old female presents with signs and symptoms consistent with acute appendicitis. The patient underwent a CT scan in the emergency room. The CT scan reveals an enlarged thickened appendix which is consistent with acute appendicitis. Unfortunately, there was air around the appendix. This suggests a perforation. The patient has had a hysterectomy in the past. Patient also had some sort of polycystic disease of her ovary. The patient's acute appendicitis was/is associated with nausea and some vomiting. The patient states that her abdominal pain is somewhat better. The patient's nausea has resolved. Review of Systems General: Reports: 10 or more systems reviewed and unremarkable except in HPI a nd below Medications/Allergies Home Medications Medication Instructions Recorded Confirmed Last Taken Type Cam Walker #1 ea 10/31/20 10/02/22 Unknown Rx acetaminophen 500 mg tablet 1,000 mg PO Q6H PRN Pain 10/02/22 10/02/22 Unknown History atenolol 50 mg tablet 50 mg PO Q12H 10/02/22 10/02/22 3 Weeks Ago History ~09/11/22 last filled 02/22/22 guaifenesin 100 mg/5 mL oral liquid 200 mg PO Q4H PRN Congestion 10/02/22 10/02/22 Unknown History ibuprofen 200 mg tablet 400 - 800 mg PO Q6H PRN Pain 10/02/22 10/02/22 Unknown History Allergies Allergy/AdvReac Type Severity Reaction Status Date / Time morphine Allergy Unknown Verified 10/02/22 08:06 Current Medications Generic Name Dose Route Start Last Admin Trade Name Freq PRN Reason Stop Dose Admin Acetaminophen 650 mg 10/01/22 23:22 10/02/22 03:25 Acetaminophen 325 Mg Tablet PO 650 mg Q6H PRN Administration Mild/Mod Pain Or Temp >/= 101 Famotidine 20 mg 10/01/22 23:22 10/02/22 10:59 Famotidine 20 Mg/2 Ml Inj IVP 20 mg Q12H JAYNE Administration Hydromorphone HCl 0.5 mg 10/01/22 23:53 10/02/22 00:45 Hydromorphone 1 Mg/Ml Inj 1 Ml IVP 0.5 mg Q4H PRN Administration PAIN Piperacillin Sod/Tazobactam 50 mls @ 12.5 mls/hr 10/02/22 06:00 10/02/22 09:33 Sod 3.375 gm/ Sodium Chloride IV Infused Q8H JAYNE Infusion Protocol Dextrose/Sodium Chloride 1,000 mls @ 75 mls/hr 10/01/22 23:22 10/02/22 10:59 Dextrose 5%-Sod Chloride 0.9% IV 75 mls/hr .[id number] JAYNE Administration PFSH Acute PFSH: Medical History (Updated 10/01/22 @ 23:17 by Johnathan Sifuentes MD) Dental abscess HTN (hypertension) Surgical History (Updated 10/01/22 @ 21:22 by Tylor Maya MD) H/O: hysterectomy Family History Father CAD (coronary artery disease) Hypertension Mother CAD (coronary artery disease) Hypertension Seizures Social History Smoking and tobacco status: current some day smoker Alcohol intake: former Vitals/I&O/Wt Last Vital Signs Temp 98.0 F 10/02/22 11:25 Pulse 99 10/02/22 11:25 Resp 14 10/02/22 11:25 BP 115/77 10/02/22 11:25 Pulse Ox 100 10/02/22 11:25 O2 Del Method 10/02/22 08:00 O2 Flow Rate 2 10/02/22 08:00 10/01/22 10/02/22 10/02/22 22:59 06:59 14:59 Intake Total 699.35 / 699.35 300 / 999.35 1000 / 1000 Output Total 250 / 250 Balance 699.35 / 699.35 50 / 749.35 1000 / 1000 Weight last 48 hrs Weight 238 lb Physical Exam Narrative: Generally: Morbidly obese. HEENT: Normocephalic atraumatic, pupils equal round reactive to light. Extraocular muscles are intact, oral nasal passages are clear Neck: Free range of motion. There are no masses that I can appreciate. The patient's trachea is midline. Patient has no thyromegaly. Lungs: Clear to auscultation and percussion Heart: Is regular rate and rhythm without murmurs. There is no S3 or S4 that I can appreciate. There is no rubs clicks or JVD noted Abdomen: Morbidly obese, soft, right lower quadrant tenderness with some mild rebound. There is a positive Rovsing sign. There are no masses that I can appreciate. There is no hepatosplenomegaly. Extremities: No obvious deformities or point tenderness suggestive of fracture. Neurologic: Patient is awake, alert, oriented x3. Patient's [place] Coma Scale is 15. Patient moves all 4 extremities without difficulty. The patient sensations intact to light touch throughout. Data 10/02/22 05:16 10/02/22 05:16 Micro: Microbiology 10/01/22 21:40 Blood Culture - Preliminary Blood SPECIMEN COLLECTED 10/01/22 21:40 Blood Culture - Preliminary Blood SPECIMEN COLLECTED Attestation for Other Data: I personally reviewed and interpreted the following: (All labs and CT scans have been reviewed.) A&P Assessment and plan (1) Acute appendicitis: Because the patient's appendix is ruptured. The patient is at increased risk of complications with laparoscopic intervention at this time. We will try the patient nonoperatively. The patient does not have a fecalith. The suggest the patient should have more success with nonoperative management. Agree with keeping the patient on Zosyn at this time. We will start the patient on some ice chips. If she tolerates this we will advance her to clear liquid diet. We will follow this patient closely. If the patient's clinical status begins to deteriorate, will need to take the patient to the operating room for operative intervention. I explained the risk and benefits of this patient. She seems to understand this and would like to proceed with nonoperative management. Clinical decision making: High Coding Level of Care Code 50524 Diagnoses Acute appendicitis K35.80
[2022-10-02] MEDS: sodium chloride 0.9% 500 ML IV (12:03)
[2022-10-02] MEDS: nicotine 14 mg Patch 1 PATCH TRANSDERMA (14:39)
--- NOTE | 2022-10-02 21:14 | PC.NURSE ---
Concerns for patient abd looking more distended and firm as well as an increase in pain in comparison to last night per evening assessment. Charge nurse layed eyes on pt as well and cooborates. Concerns relayed to both hospitalist and consulted surgeon. Surgeon ordered increase in pain medicine, asked to monitor bp and temp. No further intervention.
[2022-10-02] MEDS: HYDROmorphone 1 mg/mL INJ 1 mL IVP (21:53)
[2022-10-03] VITALS (14 sets, daily range): BP systolic 129–139; BP diastolic 74–91; PULSE 96–112; RESP 16–24; TEMP 36.5–38; O2SAT 95–98
[2022-10-03] MEDS: HYDROmorphone 1 mg/mL INJ 1 mL IVP ×7 (01:34→22:36)
[2022-10-03] MEDS: ondansetron 2 mg/ML SDV 2 mL 4 MG IVP (03:58)
[2022-10-03] MEDS: piperacillin-tazobactam 3.375 GM in sodium chloride 0.9% (plus) 50 ML IV ×3 (05:31→22:32)
[2022-10-03 05:33] LABS: Basophils % 0.2 %; Eosinophils # 0.3 10^3/uL (0.0-0.8); Eosinophils % 2.8 %; Hematocrit 39.7 % (37.0-47.0); Hemoglobin 12.7 g/dL (11.5-15.3); Lymphocytes # 1.3 10^3/uL (0.8-4.8); Lymphocytes % 13.5 %; Mean Corpuscular Hemoglobin 29.7 pg (28.0-34.0); Mean Corpuscular Volume 92.8 fl (81-99); Mean Platelet Volume 10.8 fL (7.4-10.4); Monocytes # 0.6 10^3/uL (0.2-0.9); Neutrophils # 7.22 10^3/uL (1.8-7.7); Neutrophils % 77.2 %; Nucleated Red Blood Cells % 0 %; Platelet Count 239 10^3/cmm (130-400); Red Blood Count 4.28 10^6/uL (4.1-5.3); Red Cell Distribution Width 12.8 % (12.1-15.1); White Blood Count 9.4 10^3/uL (4.0-10.0)
[2022-10-03 05:54] LABS: Alanine Aminotransferase 14 U/L (0-33); Albumin Level 3.1 g/dL (3.5-5.2); Alkaline Phosphatase 126 U/L (35-105); Anion Gap 12.7 (5-19); Aspartate Amino Transferase 12 U/L (0-32); Blood Urea Nitrogen 9 mg/dL (6-20); C Reactive Protein 321.1 mg/L (0.0-4.9); Calcium 8.8 mg/dL (8.5-10.5); Carbon Dioxide 23 mmol/L (22-29); Chloride 104 mmol/L (98-107); Globulin 3.1 g/dL (1.3-4.6); Glomerular Filtration Rate 108.1 mL/min (90-130); Glucose 144 mg/dL (65-115); Osmolality Calculated 283 mOsm/kg (285-295); Potassium 3.7 mmol/L (3.5-5.1); Sodium 136 mmol/L (136-145); Total Bilirubin 0.8 mg/dL (0.15-1.2); Total Protein 6.2 g/dL (6.6-8.7)
[2022-10-03] MEDS: nicotine 14 mg Patch 1 PATCH TRANSDERMA (09:26)
--- NOTE | 2022-10-03 10:15 | USR_ITS ---
PROCEDURE INFORMATION: Exam: US Duplex Right Lower Extremity Veins, Limited Exam date and time: 10/03/2022 5:09 PM Age: 47 years old Clinical indication: Edema, localized; Lower extremity, right; Additional info: Swelling, concern for dvt TECHNIQUE: Imaging protocol: Real-time duplex ultrasound of the right extremity with 2-D kaplan scale, color Doppler flow and spectral waveform analysis including responses to compression and other maneuvers (when performed) with image documentation. Limited exam was focused on the right lower extremity veins. COMPARISON: CT abdomen pelvis w con* [id number] 10/01/2022 9:32 PM FINDINGS: Right deep veins: Unremarkable. The common femoral, femoral, proximal profunda femoral and popliteal veins are patent without thrombus. Normal Doppler waveforms. Normal compressibility and/or augmentation response. Right superficial veins: Unremarkable. Saphenofemoral junction is patent without thrombus. Soft tissues: Unremarkable. US/[place] [id number] IMPRESSION: No evidence of deep vein thrombosis, right lower extremity.
[2022-10-03] MEDS: famotidine 20 mg/2 mL INJ IVP ×2 (12:10→22:36)
--- NOTE | 2022-10-03 13:38 | P.PN_ITS ---
Subjective Subjective: Reports continued abdominal pain, maybe slightly better today. Says that she slept better. Passing gas. Did have BM yesterday. Has been able to eat a little jello and some fluids. Vitals/I&O/Wt Last Vital Signs Temp 100.4 F H 10/03/22 08:00 Pulse 100 10/03/22 08:07 Resp 16 10/03/22 08:00 BP 137/89 10/03/22 08:00 Pulse Ox 96 10/03/22 08:07 O2 Del Method 10/03/22 08:07 O2 Flow Rate 3 10/02/22 20:00 10/02/22 10/03/22 10/03/22 22:59 06:59 14:59 Intake Total 2120 / 3620 50 / 3670 480 / 480 Output Total 300 / 300 250 / 550 Balance 1820 / 3320 -200 / 3120 480 / 480 Weight last 48 hrs Weight 238 lb Weight 238 lb Physical Exam Narrative: General: Patient resting upon entering the room. She does appear uncomfortable while awake. HEENT: PERRLA, pupils bilaterally equal and reactive Chest: Lungs clear to auscultation. CVS: Heart rate and rhythm regular. No rubs or murmurs. Abdomen: Soft, generalized abdominal tenderness. active bowel sounds. Neuro: No focal sensory or motor deficits. Sepsis: Date exam was performed: 10/01/22 Time exam was performed: 23:16 Data 10/03/22 04:30 10/03/22 04:30 Micro: Microbiology 10/01/22 21:40 Blood Culture - Preliminary Blood NEGATIVE TO DATE 10/01/22 21:40 Blood Culture - Preliminary Blood NEGATIVE TO DATE A&P Assessment and plan (1) Sepsis: (2) Acute appendicitis: (3) Abdominal pain: (4) Leukocytosis: (5) Elevated C-reactive protein (CRP): Plan 47 y.o F admitted with sepsis 2/2 acute appendicitis. Continue close inpatient monitoring. CT abdomen CT abdomen and pelvis demonstrated acute appendicitis with microperforation. No abscess was seen. Surgery is consulted. Appreciate their recommendations. Recommended conservative management. Slightly Febrile today. BP stable. Mild tachycardia, but stable. Continue Zosyn. Continue IVF's. WBC to 9.4. CRP 321 this morning. Blood cultures negative to date. Continue oral,IV pain meds. Out of bed for early ambulation. Serial abdominal examination. Home meds for other chronic medical. Code Status: Full IVF: D5NS 75 DVT PPx: SCD's GI PPx: Famotidine ABx: Zosyn Diet: Clear liquid Disposition: Med/Surg. Attestations Medical Necessity Statement*: Admission for more than 2 midnights for management of sepsis in setting of acute appendicitis with microperforation without abscess Coding Level of Care Code Acute Code for Chg Fwd Moderate MDM includes number and complexity of problems actively addressed d uring encounter, amount and/or complexity of data reviewed/ordered and described risk of complication, morbidity or mortality of management as documented Diagnoses Sepsis A41.9 Acute appendicitis K35.80 Abdominal pain R10.9 Leukocytosis D72.829 Elevated C-reactive protein (CRP) R79.82
[2022-10-03] MEDS: LORazepam 0.5 mg Tablet PO (14:55)
--- NOTE | 2022-10-03 15:30 | P.PN_ITS ---
Subjective Subjective: This patient is done relatively well overnight. The patient did have abdominal distention. This appears to be resolving. The patient's pain appears to be under good control. Medications: Reviewed: Yes Vitals/I&O/Wt Last Vital Signs Temp 98.3 F 10/03/22 12:44 Pulse 112 H 10/03/22 12:44 Resp 18 10/03/22 15:00 BP 134/81 10/03/22 12:44 Pulse Ox 96 10/03/22 12:44 O2 Del Method 10/03/22 12:44 O2 Flow Rate 3 10/02/22 20:00 10/03/22 10/03/22 10/03/22 06:59 14:59 22:59 Intake Total 50 / 3670 650 / 650 Output Total 250 / 550 Balance -200 / 3120 650 / 650 Weight last 48 hrs Weight 238 lb Weight 238 lb Physical Exam Narrative: Generally: No acute distress Lungs: Clear to auscultation Heart: Regular rate and rhythm Abdomen: Somewhat obese, some right lower quadrant tenderness. I really do not appreciate any rebound. Patient has decreased bowel sounds. I do not appreci ate any rushes or tinkles. Extremities: There is no clubbing cyanosis or edema Neurologic: The patient is awake, alert, oriented x3. The patient moves all 4 extremities without difficulty. The patient sensations intact to light touch throughout. Data 10/03/22 04:30 10/03/22 04:30 Micro: Microbiology 10/01/22 21:40 Blood Culture - Preliminary Blood NEGATIVE TO DATE 10/01/22 21:40 Blood Culture - Preliminary Blood NEGATIVE TO DATE A&P Assessment and plan (1) Acute appendicitis: This patient has acute perforated appendicitis. We are treating this nonoperatively. We will continue a antibiotic therapy. We will advance the patient to full liquids. Decision making: Moderate Attestations Medical Necessity Statement*: Continue nonoperative therapy Coding Level of Care Code 56267 Diagnoses Acute appendicitis K35.80
[2022-10-03] MEDS: dextrose 5%-sod chloride 0.9% 1,000 ML 75 ML IV (20:35)
[2022-10-04] VITALS (11 sets, daily range): BP systolic 118–144; BP diastolic 75–90; PULSE 92–110; RESP 16–20; TEMP 36.4–37.5; O2SAT 93–98
[2022-10-04] MEDS: HYDROmorphone 1 mg/mL INJ 1 mL IVP ×3 (00:48→05:34)
[2022-10-04] MEDS: piperacillin-tazobactam 3.375 GM in sodium chloride 0.9% (plus) 50 ML IV (05:25)
[2022-10-04 10:21] LABS: Basophils % 0.1 %; Eosinophils # 0.1 10^3/uL (0.0-0.8); Eosinophils % 1.4 %; Hematocrit 36.8 % (37.0-47.0); Hemoglobin 11.9 g/dL (11.5-15.3); Lymphocytes # 1.4 10^3/uL (0.8-4.8); Lymphocytes % 14.5 %; Mean Corpuscular HGB Conc 32.3 g/dL (30.0-36.0); Mean Corpuscular Hemoglobin 29.3 pg (28.0-34.0); Mean Corpuscular Volume 90.6 fl (81-99); Monocytes # 0.7 10^3/uL (0.2-0.9); Monocytes % 7.4 %; Neutrophils # 7.42 10^3/uL (1.8-7.7); Neutrophils % 76.2 %; Nucleated Red Blood Cells % 0 %; Platelet Count 269 10^3/cmm (130-400); Red Blood Count 4.06 10^6/uL (4.1-5.3); Red Cell Distribution Width 12.3 % (12.1-15.1); White Blood Count 9.7 10^3/uL (4.0-10.0)
--- NOTE | 2022-10-04 10:32 | P.PN_ITS ---
Subjective Subjective: The patient is extremely emotional this morning. The patient stated that her cheated on her. She stated that she wanted to be discharged at this time. I told her if she wanted to be discharged she need to sign out AGAINST MEDICAL ADVICE. The patient seems to be slowly improving. The patient really did not focus on her abdomen. She really stated that she had a headache. She did not complain of abdominal pain. Patient did say that she was somewhat constipated. Medications: Reviewed: Yes Vitals/I&O/Wt Last Vital Signs Temp 98.3 F 10/04/22 08:00 Pulse 105 H 10/04/22 08:00 Resp 16 10/04/22 08:00 BP 139/85 10/04/22 08:00 Pulse Ox 98 10/04/22 08:00 O2 Del Method 10/04/22 08:00 O2 Flow Rate 3 10/02/22 20:00 10/03/22 10/04/22 10/04/22 22:59 06:59 14:59 Intake Total 170 / 1820 410 / 2230 Balance 170 / 1820 410 / 2230 Physical Exam Narrative: Generally: No acute distress Lungs: Clear to auscultation Heart: Regular rate and rhythm Abdomen: Soft, obese, nontender to my examination. The patient has normal active bowel sounds. There is no rushes or tinkles. Data 10/04/22 09:23 10/03/22 04:30 Attestation for Other Data: I personally reviewed and interpreted the following: (I reviewed all the patient's labs.) A&P Assessment and plan (1) Acute appendicitis: Continuing nonoperative therapy. We will switch the patient from IV antibiotics to p.o. antibiotics. We will start the patient on Augmentin. If the patient tolerates Augmentin for the next 24 hours the patient can be discharged home t omorrow. We will switch the patient over to regular diet. We will give the patient pain medicine by mouth. This patient appears to be slowly improving from acute appendicitis. Attestations Medical Necessity Statement*: Continuing nonoperative therapy of acute appendicitis Coding Level of Care Code 24901 Diagnoses Acute appendicitis K35.80
[2022-10-04 10:41] LABS: Alanine Aminotransferase 12 U/L (0-33); Albumin Level 2.8 g/dL (3.5-5.2); Alkaline Phosphatase 114 U/L (35-105); Anion Gap 14.6 (5-19); Aspartate Amino Transferase 8 U/L (0-32); Blood Urea Nitrogen 4 mg/dL (6-20); C Reactive Protein 255.2 mg/L (0.0-4.9); Calcium 8.4 mg/dL (8.5-10.5); Carbon Dioxide 23 mmol/L (22-29); Chloride 102 mmol/L (98-107); Globulin 3.5 g/dL (1.3-4.6); Glomerular Filtration Rate 108.1 mL/min (90-130); Glucose 154 mg/dL (65-115); Osmolality Calculated 282 mOsm/kg (285-295); Potassium 3.6 mmol/L (3.5-5.1); Sodium 136 mmol/L (136-145); Total Bilirubin 0.6 mg/dL (0.15-1.2); Total Protein 6.3 g/dL (6.6-8.7)
[2022-10-04 11:25] LABS: Basophils % 0.1 %; Eosinophils # 0.1 10^3/uL (0.0-0.8); Eosinophils % 1.1 %; Hematocrit 36.6 % (37.0-47.0); Hemoglobin 11.9 g/dL (11.5-15.3); Lymphocytes # 1.4 10^3/uL (0.8-4.8); Lymphocytes % 13.5 %; Mean Corpuscular HGB Conc 32.5 g/dL (30.0-36.0); Mean Corpuscular Hemoglobin 29.2 pg (28.0-34.0); Mean Corpuscular Volume 89.7 fl (81-99); Mean Platelet Volume 10.9 fL (7.4-10.4); Monocytes # 0.9 10^3/uL (0.2-0.9); Monocytes % 8.8 %; Neutrophils # 7.63 10^3/uL (1.8-7.7); Neutrophils % 76.1 %; Nucleated Red Blood Cells % 0 %; Platelet Count 267 10^3/cmm (130-400); Red Blood Count 4.08 10^6/uL (4.1-5.3); Red Cell Distribution Width 12.3 % (12.1-15.1)
[2022-10-04] MEDS: nicotine 14 mg Patch 1 PATCH TRANSDERMA ×2 (11:41→21:26)
[2022-10-04] MEDS: lactulose oral liq 20 gm/30 mL UDC 30 GM PO (11:41)
[2022-10-04] MEDS: famotidine 20 mg/2 mL INJ IVP (11:41)
[2022-10-04] MEDS: amoxicillin-clav 875-125 mg Tablet 1 TAB PO ×2 (11:41→20:22)
[2022-10-04] MEDS: oxyCODONE 5 mg IR Tab/Cap 10 MG PO ×3 (11:42→23:21)
[2022-10-04 11:50] LABS: Alanine Aminotransferase 11 U/L (0-33); Albumin Level 2.7 g/dL (3.5-5.2); Alkaline Phosphatase 150 U/L (35-105); Anion Gap 13.7 (5-19); Aspartate Amino Transferase 12 U/L (0-32); Blood Urea Nitrogen 4 mg/dL (6-20); Calcium 8.3 mg/dL (8.5-10.5); Carbon Dioxide 23 mmol/L (22-29); Chloride 103 mmol/L (98-107); Globulin 3.3 g/dL (1.3-4.6); Glomerular Filtration Rate 108.1 mL/min (90-130); Glucose 126 mg/dL (65-115); Osmolality Calculated 280 mOsm/kg (285-295); Potassium 3.7 mmol/L (3.5-5.1); Sodium 136 mmol/L (136-145); Total Bilirubin 0.5 mg/dL (0.15-1.2)
--- NOTE | 2022-10-04 15:10 | P.PN_ITS ---
Subjective Subjective: Patient very upset this morning. States that while she has been in the hospital, she was notified that her had an affair. She says that she needs to go home. She has not visited with the surgeon as of this time today. Continues to have some RLQ pain. Has been able to tolerate some PO i ntake, but this situation has caused her to not be hungry. Vitals/I&O/Wt Last Vital Signs Temp 98.3 F 10/04/22 08:00 Pulse 100 10/04/22 12:00 Resp 17 10/04/22 12:00 BP 136/90 10/04/22 12:00 Pulse Ox 93 10/04/22 12:00 O2 Del Method 10/04/22 12:00 O2 Flow Rate 3 10/02/22 20:00 10/04/22 10/04/22 10/04/22 06:59 14:59 22:59 Intake Total 410 / 2230 600 / 600 Balance 410 / 2230 600 / 600 Physical Exam Narrative: General: Patient anxious today. Emotional. HEENT: PERRLA, pupils bilaterally equal and reactive Chest: Lungs clear to auscultation. CVS: Heart rate and rhythm regular. No rubs or murmurs. Abdomen: Soft, mild RLQ tenderness. Bowel sounds active. . Neuro: No focal sensory or motor deficits. Data 10/04/22 10:45 10/04/22 10:45 A&P Assessment and plan (1) Sepsis: (2) Acute appendicitis: (3) Abdominal pain: (4) Leukocytosis: Resolved. (5) Elevated C-reactive protein (CRP): Improved. Down to 255 from 321 yesterday. Plan 47 y.o F admitted with sepsis 2/2 acute appendicitis. Continue close inpatient monitoring. CT abdomen CT abdomen and pelvis demonstrated acute appendicitis with microperforation. No abscess was seen. Surgery is consulted. Appreciate their recommendations. Recommended conser vative management. Plan to switch abx to Augmentin. PO pain medication. Diet advanced to regular. Blood cultures negative to date. Recommend up in chair and ambulation. She has had BM and is passing flatus regularly. Home meds for other chronic medical. Per Surgery: If patient can tolerate PO ABx for 24hours, may discharge tomorrow. Code Status: Full IVF: DVT PPx: SCD's GI PPx: Famotidine ABx: Augmentin Diet: Regular. Disposition: Med/Surg. Attestations Medical Necessity Statement*: Continue inpatient monitoring for acute appendicitis management. Possible Discharge tomorrow. Coding Level of Care Code Acute Code for Chg Fwd Moderate MDM includes number and complexity of problems actively addressed during encounter, amount and/or complexity of data reviewed/ordered and described risk of complication, morbidity or mortality of management as documented Diagnoses Sepsis A41.9 Acute appendicitis K35.80 Abdominal pain R10.9 Leukocytosis D72.829 Elevated C-reactive protein (CRP) R79.82
[2022-10-04] MEDS: acetaminophen 325 mg Tablet 650 MG PO (16:14)
--- NOTE | 2022-10-04 17:27 | PC.NURSE ---
Per ALEXA Rice, during patient hand on pt's IV came out and per Dr. Ruvalcaba it is okay to leave dc'd as well as IV fluids/IVP.
[2022-10-04] MEDS: LORazepam 0.5 mg Tablet PO (21:30)
[2022-10-05] VITALS (11 sets, daily range): BP systolic 121–149; BP diastolic 78–99; PULSE 81–103; RESP 16–22; TEMP 36.6–37.1; O2SAT 96–100; BMI 43.5
[2022-10-05 04:57] LABS: Basophils % 0.2 %; Eosinophils # 0.4 10^3/uL (0.0-0.8); Eosinophils % 3.7 %; Hematocrit 36.5 % (37.0-47.0); Hemoglobin 11.9 g/dL (11.5-15.3); Lymphocytes # 2.1 10^3/uL (0.8-4.8); Lymphocytes % 20.9 %; Mean Corpuscular HGB Conc 32.6 g/dL (30.0-36.0); Mean Corpuscular Hemoglobin 29.8 pg (28.0-34.0); Mean Corpuscular Volume 91.5 fl (81-99); Mean Platelet Volume 10.4 fL (7.4-10.4); Monocytes # 0.9 10^3/uL (0.2-0.9); Monocytes % 9.1 %; Neutrophils # 6.41 10^3/uL (1.8-7.7); Neutrophils % 65.5 %; Nucleated Red Blood Cells % 0 %; Platelet Count 277 10^3/cmm (130-400); Red Blood Count 3.99 10^6/uL (4.1-5.3); Red Cell Distribution Width 12.4 % (12.1-15.1); White Blood Count 9.8 10^3/uL (4.0-10.0)
[2022-10-05 05:19] LABS: Alanine Aminotransferase 14 U/L (0-33); Albumin Level 2.8 g/dL (3.5-5.2); Alkaline Phosphatase 110 U/L (35-105); Anion Gap 15.5 (5-19); Aspartate Amino Transferase 15 U/L (0-32); Blood Urea Nitrogen 5 mg/dL (6-20); Calcium 8.6 mg/dL (8.5-10.5); Carbon Dioxide 23 mmol/L (22-29); Chloride 103 mmol/L (98-107); Globulin 3.1 g/dL (1.3-4.6); Glomerular Filtration Rate 108.1 mL/min (90-130); Glucose 148 mg/dL (65-115); Osmolality Calculated 286 mOsm/kg (285-295); Potassium 3.5 mmol/L (3.5-5.1); Sodium 138 mmol/L (136-145); Total Bilirubin 0.3 mg/dL (0.15-1.2); Total Protein 5.9 g/dL (6.6-8.7)
[2022-10-05] MEDS: oxyCODONE 5 mg IR Tab/Cap 10 MG PO ×3 (05:19→17:50)
[2022-10-05] MEDS: amoxicillin-clav 875-125 mg Tablet 1 TAB PO (09:05)
[2022-10-05] MEDS: LORazepam 0.5 mg Tablet PO (09:20)
--- NOTE | 2022-10-05 11:21 | CT_ITS ---
WS: [id number] CT ABDOMEN AND PELVIS WITH CONTRAST HISTORY: F/U appendicitis TECHNIQUE: Imaging performed of the abdomen and pelvis with IV contrast. Single phase imaging of the abdomen. Coronal and sagittal reformats are submitted. All CT scans at [facility] use at [address] one of these dose optimization techniques: automated exposure control; mA and/or kV adjustment per patient size (includes targeted exams where dose is matched to clinical indication); or iterative re construction. IV CONTRAST: Omnipaque 350; 100 mL IV. Oral contrast: Yes. DLP: 1163.03 mGy.cm COMPARISON: 10/01/2022 Lower thorax: Benign granuloma at the lung bases. Very small RIGHT pleural effusion. Heart is normal size. Small hiatal hernia. Liver/biliary system: Normal size with no intrahepatic dilatation. Gallbladder: Status post cholecystectomy. Pancreas: Normal size pancreas and pancreatic duct. No adjacent inflammation. Spleen: Normal size spleen. No mass or infarct. Adrenal glands: Normal. Right kidney: Chronic cortical scarring upper pole RIGHT kidney. There is now mild dilatation of the RIGHT renal pelvis and RIGHT ureter. In the RIGHT lower quadrant the ureter becomes more dilated. Dil atation is due to an area of inflammation from the ruptured appendicitis. Left kidney: Normal. Aorta: Normal. Lymphadenopathy: None. Free fluid: Small amount of free fluid in the RIGHT lower quadrant extending into the pelvis. GI tract: Normally distended stomach. Negative small bowel. Patient has a known acute ruptured append icitis. There has been a significant progression of inflammatory findings and inflammatory collection developed since the prior study. At the site of the ruptured appendix is a focal collection containi ng air measuring 3.0 x 2.1 cm. There is a larger fluid collection extending into the RIGHT pelvis maria eugenia suring 5.0 x 9.4 cm. This larger collection is being encased by the dilated ureter. Abdominal wall: Unremarkable abdominal wall. No hernia. Pelvis: Urinary bladder is well distended. Presacral soft tissue thickening edema. Distal RIGHT urete r is dilated. Medial to the distal RIGHT ureter is fluid collection with enhancing wall which is most likely abscess from ruptured appendicitis. Prior hysterectomy. Bones: Unremarkable. CT/CT abdomen pelvis w con* [id number] IMPRESSION: 1. As indicated on the prior examination ruptured appendicitis with persistent abscess at the rupture site measuring 3.0 x 2.1 cm. 2. Additional development of a large RIGHT lower quadrant abscess measuring 5. 0 x 9.4 cm. 3. Dilated RIGHT ureter extends along the lateral aspect of the abscess cavity . The ureter is dilated as a sympathetic response to the adjacent abscess. Notified Celestino Weber DO at 10/05/2022 2:10 PM.
[2022-10-05] MEDS: iohexol 350 mg/mL 500 mL Btl (per mL) IV (13:40)
--- NOTE | 2022-10-05 15:17 | PM.PN ---
Subjective Subjective: seen today wants to go home however still has RLQ abdominal pain and says its sore afebrile overnight Vitals/I&O/Wt Last Vital Signs Temp 98 F 10/05/22 12:00 Pulse 99 10/05/22 12:00 Resp 18 10/05/22 12:00 BP 145/96 10/05/22 12:00 Pulse Ox 98 10/05/22 12:00 O2 Del Method 10/05/22 08:00 O2 Flow Rate 3 10/04/22 20:00 10/05/22 10/05/22 10/05/22 06:59 14:59 22:59 Intake Total 660 / 2430 480 / 480 Output Total 1600 / 1600 Balance -940 / 830 480 / 480 Physical Exam Narrative: General: no acute distress, appears anxious HEENT: eomi Chest: Lungs clear to auscultation. CVS: Heart rate and rhythm regular. No rubs or murmurs. Abdomen: Soft, mild RLQ tenderness. Bowel sounds active. . Neuro: No focal sensory or motor deficits. Data 10/05/22 04:38 10/05/22 04:38 A&P Assessment and plan (1) Perforated appendicitis: (2) Elevated C-reactive protein (CRP): (3) Leukocytosis: (4) Acute appendicitis: (5) Abdominal pain: (6) Sepsis: (7) HTN (hypertension): (8) Intra-abdominal abscess: Plan #Sepsis 2/2 acute appendicitis #RLQ abscess #Anxiety - BCx NTD - CT abdomen and pelvis demonstrated acute appendicitis with microperforation.? No abscess was seen at admission. - Repeat CT scan today shows: 1.? As indicated on the prior examination ruptured appendicitis with persistent abscess at the rupture site measuring 3.0 x 2.1 cm. 2.? Additional development of a large RIGHT lower quadrant abscess measuring 5.0 x 9.4 cm. 3.? Dilated RIGHT ureter extends along the lateral aspect of the abscess cavity. The ureter is dilated as a sympathetic response to the adjacent abscess. - Surgery talked with IR - Pt to get a drain placed in RLQ in AM - NPO at midnight - Stop oral augmentin - Place on zosyn IV q8H - Gen surgery on board. Appreciate recommendations - Will update patient at bedside with new findings - She would be unsafe for discharge and requires inpatient stay. Full CODE NPO at midnight Attestations Medical Necessity Statement*: continue inpatient hospitalization for management of perforated appendix with abscess formation requiring drainage. Diagnoses Perforated appendicitis K35.32 Elevated C-reactive protein (CRP) R79.82 Leukocytosis D72.829 Acute appendicitis K35.80 Abdominal pain R10.9 Sepsis A41.9 HTN (hypertension) I10 Intra-abdominal abscess K65.1
--- NOTE | 2022-10-05 15:18 | PM.PN ---
Subjective Subjective: I am seeing Ms. Villar for the first time this morning-taking over for the last surgeon. Patient is asking to go home. She still has some right lower quadrant tenderness. Denies any nausea or vomiting. Vitals/I&O/Wt Last Vital Signs Temp 98 F 10/05/22 12:00 Pulse 99 10/05/22 12:00 Resp 18 10/05/22 12:00 BP 145/96 10/05/22 12:00 Pulse Ox 98 10/05/22 12:00 O2 Del Method 10/05/22 08:00 O2 Flow Rate 3 10/04/22 20:00 10/05/22 10/05/22 10/05/22 06:59 14:59 22:59 Intake Total 660 / 2430 480 / 480 Output Total 1600 / 1600 Balance -940 / 830 480 / 480 Physical Exam Narrative: General: No acute distress, awake alert and oriented x3 Abdomen: Soft, distended, tender to palpation right lower quadrant, no guarding rebound or masses Data 10/05/22 04:38 10/05/22 04:38 A&P Assessment and plan (1) Perforated appendicitis: Plan I ordered a repeat CT abdomen pelvis with contrast this morning. CT shows 3 cm abscess near the appendix and a large abscess in the pelvis. IV antibiotics IR to perform CT-guided drainage tomorrow N.p.o. after midnight I will follow the patient closely. At this point, 4 days after perforation and with a large abscess, we are going to pursue IR drainage and IV antibiotics followed by interval appendectomy in 6 to 8 weeks. If she acutely worsens or does not improve, we will need to consider taking her to the operating room sooner. Medical management per hospitalist Attestations Medical Necessity Statement*: Patient requires further hospitalization for IR drainage and IV antibiotics Coding Level of Care Code Acute Code for [facility] Diagnoses Perforated appendicitis K35.32
[2022-10-05] MEDS: piperacillin-tazobactam 3.375 GM in sodium chloride 0.9% (plus) 50 ML IV ×2 (17:52→23:14)
[2022-10-05] MEDS: nicotine 14 mg Patch 1 PATCH TRANSDERMA (20:58)
[2022-10-05] MEDS: HYDROmorphone 1 mg/mL INJ 1 mL IVP (20:58)
[2022-10-05] MEDS: famotidine 20 mg/2 mL INJ IVP (23:14)
[2022-10-06] VITALS (27 sets, daily range): BP systolic 111–164; BP diastolic 72–131; PULSE 69–100; RESP 15–19; TEMP 36.1–37.1; O2SAT 90–100; BMI 43.5
[2022-10-06] MEDS: oxyCODONE 5 mg IR Tab/Cap 10 MG PO ×4 (04:07→23:42)
[2022-10-06] MEDS: LORazepam 0.5 mg Tablet PO ×2 (04:11→21:26)
[2022-10-06 05:14] LABS: Basophils % 0.3 %; Eosinophils # 0.4 10^3/uL (0.0-0.8); Eosinophils % 3.2 %; Hematocrit 36.5 % (37.0-47.0); Hemoglobin 12.1 g/dL (11.5-15.3); Lymphocytes # 1.9 10^3/uL (0.8-4.8); Lymphocytes % 17.2 %; Mean Corpuscular HGB Conc 33.2 g/dL (30.0-36.0); Mean Corpuscular Hemoglobin 29.3 pg (28.0-34.0); Mean Corpuscular Volume 88.4 fl (81-99); Mean Platelet Volume 10.1 fL (7.4-10.4); Monocytes # 0.9 10^3/uL (0.2-0.9); Neutrophils # 7.78 10^3/uL (1.8-7.7); Neutrophils % 70.2 %; Nucleated Red Blood Cells % 0 %; Platelet Count 323 10^3/cmm (130-400); Red Blood Count 4.13 10^6/uL (4.1-5.3); Red Cell Distribution Width 12.4 % (12.1-15.1); White Blood Count 11.1 10^3/uL (4.0-10.0)
[2022-10-06 05:35] LABS: Alanine Aminotransferase 16 U/L (0-33); Albumin Level 2.8 g/dL (3.5-5.2); Alkaline Phosphatase 119 U/L (35-105); Anion Gap 14.8 (5-19); Aspartate Amino Transferase 13 U/L (0-32); Blood Urea Nitrogen 4 mg/dL (6-20); Calcium 8.7 mg/dL (8.5-10.5); Carbon Dioxide 26 mmol/L (22-29); Chloride 102 mmol/L (98-107); Globulin 3.2 g/dL (1.3-4.6); Glomerular Filtration Rate 108.1 mL/min (90-130); Glucose 113 mg/dL (65-115); Osmolality Calculated 286 mOsm/kg (285-295); Potassium 3.8 mmol/L (3.5-5.1); Sodium 139 mmol/L (136-145); Total Bilirubin 0.4 mg/dL (0.15-1.2)
--- NOTE | 2022-10-06 07:00 | PC.NURSE ---
Bedside report completed at this time with Janet LIU from [employer] service [employer]. Patient is resting in bed with her eyes closed.
[2022-10-06] MEDS: piperacillin-tazobactam 3.375 GM in sodium chloride 0.9% (plus) 50 ML IV ×3 (07:38→22:47)
--- NOTE | 2022-10-06 12:20 | PC.NURSE ---
Patient to GI lab at this time.
--- NOTE | 2022-10-06 12:30 | CT_ITS ---
WS: [id number] PELVIC ABSCESS DRAIN CLINICAL INFORMATION: perf appy c abscess COMPARISON: None. DLP: 2734.59 mGy.cm TECHNIQUE: The procedure including risk, benefits, and complications were discussed with the patient who agreed to proceed. Using sterile technique, the patient was prepped and draped in the usual steri le fashion. Timeout was performed. Patient was initially positioned supine. No acceptable window for drain placement in the supine position. Patient was positioned [id number] and CT images were obta ined through the pelvis . Pelvic fluid collection was selected. After 1% lidocaine using fluoroscopic guidance, a 18-gauge coaxial needle was advanced into the pelvic abscess. Approximately 10 cc purule nt fluid was aspirated. Using Seldinger technique an 8FR pig catheter was placed and fixed in positio n. No immediate complications. Conscious sedation with Versed and fentanyl was utilized. Anesthesia was utilized for drain placement CT/CT drain appendix absces [id number] IMPRESSION: 1. Uncomplicated 8 [place] pelvic pigtail drain placement. 2. Recommend draining flushing 8-10 cc normal saline 1-2 times per day
--- NOTE | 2022-10-06 13:05 | PM.PN ---
Subjective Subjective: Patient is n.p.o. since midnight and will be going for drain placement today. She says her abdomen is much more sore compared to yesterday. Vitals/I&O/Wt Last Vital Signs Temp 98.2 F 10/06/22 08:00 Pulse 69 10/06/22 08:00 Resp 18 10/06/22 10:37 BP 111/72 10/06/22 08:00 Pulse Ox 95 10/06/22 08:00 O2 Del Method 10/06/22 08:00 O2 Flow Rate 3 10/06/22 08:25 10/05/22 10/06/22 10/06/22 22:59 06:59 14:59 Intake Total 410 / 890 50 / 940 Output Total 1500 / 2000 600 / 2600 Balance -1090 / -1110 -550 / -1660 Weight last 48 hrs Weight 111.584 kg Weight 111.584 kg Physical Exam Narrative: General: no acute distress, appears anxious HEENT: eomi Chest: Lungs clear to auscultation. CVS: Heart rate and rhythm regular. No rubs or murmurs. Abdomen: Soft, Bowel sounds active. . No apparent guarding present however there is tenderness to palpation in right lower quadrant. Neuro: No focal sensory or motor deficits. Data 10/06/22 04:54 10/06/22 04:54 A&P Assessment and plan (1) Perforated appendicitis: (2) Elevated C-reactive protein (CRP): (3) Leukocytosis: (4) Acute appendicitis: (5) Abdominal pain: (6) Sepsis: (7) HTN (hypertension): (8) Intra-abdominal abscess: Plan #Sepsis 2/2 acute appendicitis #RLQ abscess #Anxiety - BCx NTD - CT abdomen and pelvis demonstrated acute appendicitis with microperforation.? No abscess was seen at admission. - Repeat CT scan today shows: 1.? As indicated on the prior examination ruptured appendicitis with persistent abscess at the rupture site measuring 3.0 x 2.1 cm. 2.? Additional development of a large RIGHT lower quadrant abscess measuring 5.0 x 9.4 cm. 3.? Dilated RIGHT ureter extends along the lateral aspect of the abscess cavity. The ureter is dilated as a sympathetic response to the adjacent abscess. - Surgery talked with IR - Pt to get a drain placed in RLQ today -Continue on zosyn IV q8H - Gen surgery on board. Appreciate recommendations Full CODE NPO Attestations Medical Necessity Statement*: Drain placement today in right lower quadrant. Will require inpatient stay for the next few days. Diagnoses Perforated appendicitis K35.32 Elevated C-reactive protein (CRP) R79.82 Leukocytosis D72.829 Acute appendicitis K35.80 Abdominal pain R10.9 Sepsis A41.9 HTN (hypertension) I10 Intra-abdominal abscess K65.1
[2022-10-06] MEDS: sodium chloride 0.9% 1,000 ML 30 ML IV (13:15)
[2022-10-06] MEDS: fentaNYL 50 mcg/mL INJ 2mL 25 MCG IVP ×3 (13:23→14:10)
[2022-10-06] MEDS: midazolam 1 mg/mL INJ 2 mL IVP ×3 (13:25→14:10)
[2022-10-06] MEDS: midazolam 1 mg/mL INJ 2 mL 2 MG IVP ×2 (13:30→14:01)
[2022-10-06] MEDS: fentaNYL 50 mcg/mL INJ 2mL IVP ×2 (13:30→14:00)
--- NOTE | 2022-10-06 14:18 | PC.NURSE ---
1415- Anesthesia here to take over with sedation. changed from nurse sedation to MAC.
--- NOTE | 2022-10-06 15:23 | PC.NURSE ---
Patient states, I want some fucking water or ice chips or something. I am starving to . Explained to ann that she still has a NPO diet which means she should not have anything by mouth yet. Patient states, I don't fucking care I will just get up and get water myself when your not in the room. Explained to the patient that sh should wait for the order. Patient did not respond.
--- NOTE | 2022-10-06 15:54 | PC.NURSE ---
Patient returned from GI Lab at this time.
--- NOTE | 2022-10-06 16:24 | ANES.PREANE2 ---
Pre-Anesthetic Assessment Height/Weight: Height 1.6 m Weight 111.584 kg Temp Pulse Resp BP Pulse Ox O2 Del Method O2 Flow Rate 97 F L 96 18 126/92 96 3 10/06/22 14:38 10/06/22 14:48 10/06/22 14:48 10/06/22 14:48 10/06/22 14:48 10/06/22 14:48 10/06/22 08:25 Operation Date: 10/06/22 12:[address] Drain Placement(Not Applicable) - Fredrick Méndez MD Familial anesthetic complications: none Was Beta Jann taken within 24 hours: Yes Was Clonidine taken within 24 hours: N/A Social No alcohol and No tobacco Exam alert, oriented x 3, clear to auscultation bilaterally and regular rate & rhythm Airway Submandibular: within normal limits Cervical ROM: within normal limits Mallampati: Class II Dentition: full CV/HEM Hypertension GI appendicitis Metabolic Morbid Obesity Anesthetic Plan ASA status: 2E Anesthesia: General (mod RSI) Medications/Allergies Home Medications Medication Instructions Recorded Confirmed Last Taken Type Cam Walker #1 ea 10/31/20 10/02/22 Unknown Rx acetaminophen 500 mg tablet 1,000 mg PO Q6H PRN Pain 10/02/22 10/02/22 Unknown History atenolol 50 mg tablet 50 mg PO Q12H 10/02/22 10/02/22 3 Weeks Ago History ~09/11/22 last filled 02/22/22 guaifenesin 100 mg/5 mL oral liquid 200 mg PO Q4H PRN Congestion 10/02/22 10/02/22 Unknown History ibuprofen 200 mg tablet 400 - 800 mg PO Q6H PRN Pain 10/02/22 10/02/22 Unknown History Allergies Allergy/AdvReac Type Severity Reaction Status Date / Time morphine Allergy Unknown Verified 10/02/22 08:06 Current Medications Generic Name Dose Route Start Last Admin Trade Name Freq PRN Reason Stop Dose Admin Acetaminophen 650 mg 10/01/22 23:22 10/02/22 14:43 Acetaminophen 325 Mg Tablet PO 650 mg Q6H PRN Administration Mild/Mod Pain Or Temp >/= 101 Acetaminophen 650 mg 10/04/22 10:26 10/04/22 16:14 Acetaminophen 325 Mg Tablet PO 650 mg Q6H PRN Administration MILD PAIN Famotidine 20 mg 10/01/22 23:22 10/06/22 15:12 Famotidine 20 Mg/2 Ml Inj IVP Not Given Q12H JAYNE Fentanyl 25 mcg 10/06/22 11:39 10/06/22 14:10 Fentanyl 50 Mcg/Ml Inj 2ml IVP 25 mcg PRN PRN Administration SEDATION Fentanyl 50 mcg 10/06/22 13:32 10/06/22 14:00 Fentanyl 50 Mcg/Ml Inj 2ml IVP 50 mcg PRN PRN Administration SEDATION Hydromorphone HCl 1 mg 10/03/22 01:20 10/05/22 20:58 Hydromorphone 1 Mg/Ml Inj 1 Ml IVP 1 mg Q2H PRN Administration SEVERE PAIN Piperacillin Sod/Tazobactam 50 mls @ 12.5 mls/hr 10/05/22 15:30 10/06/22 15:22 Sod 3.375 gm/ Sodium Chloride IV 12.5 mls/hr Q8H JAYNE Administration Protocol Sodium Chloride 1,000 mls @ 30 mls/hr 10/06/22 12:00 10/06/22 14:43 Sodium Chloride 0.9% IV Infused .Q24H JAYNE Infusion Midazolam HCl 1 mg 10/06/22 11:39 10/06/22 14:10 Midazolam 1 Mg/Ml Inj 2 Ml IVP 1 mg PRN PRN Administration SEDATION Midazolam HCl 2 mg 10/06/22 13:32 10/06/22 14:01 Midazolam 1 Mg/Ml Inj 2 Ml IVP 2 mg PRN PRN Administration SEDATION Nicotine 1 patch 10/04/22 21:30 10/05/22 20:58 Nicotine 14 Mg Patch TRANSDERMA 1 patch BEDTIME JAYNE Administration Ondansetron HCl 4 mg 10/01/22 23:22 10/03/22 03:58 Ondansetron 2 Mg/Ml Sdv 2 Ml IVP 4 mg Q8H PRN Administration vomiting, or N/V if npo PFSH Anesthesia Medical History (Updated 10/05/22 @ 15:23 by Fernanda Howard MD) Dental abscess HTN (hypertension) Surgical History (Updated 10/01/22 @ 21:22 by Tylor Maya MD) H/O: hysterectomy Family History Father CAD (coronary artery disease) Hypertension Mother CAD (coronary artery disease) Hypertension Seizures Social History Smoking and tobacco status: current some day smoker Alcohol intake: former Data Anesthesia 10/06/22 04:54 10/06/22 04:54 Short CBC 10/05/22 10/06/22 Range/Units 04:38 04:54 WBC 9.8 11.1 H (4.0-10.0) 10^3/uL Hgb 11.9 12.1 (11.5-15.3) g/dL Hct 36.5 L 36.5 L (37.0-47.0) % MCV 91.5 88.4 (81-99) fl Plt Count 277 323 (130-400) 10^3/cmm Neut % (Auto) 65.5 70.2 % Neut # (Auto) 6.41 7.78 H (1.8-7.7) 10^3/uL BMP 10/05/22 10/06/22 04:38 04:54 Sodium 138 139 Potassium 3.5 3.8 Chloride 103 102 Carbon Dioxide 23 26 BUN 5 L 4 L Creatinine 0.6 0.6 Glucose 148 H 113 Calcium 8.6 8.7 Liver Function 10/05/22 10/06/22 Range/Units 04:38 04:54 Total Bilirubin 0.3 0.4 (0.15-1.2) mg/dL AST 15 13 (0-32) U/L ALT 14 16 (0-33) U/L Alkaline Phosphatase 110 H 119 H (35-105) U/L Albumin 2.8 L 2.8 L (3.5-5.2) g/dL Cardiac Studies: No Data to Display
--- NOTE | 2022-10-06 16:29 | ANE.PACU2 ---
Inpatient post-anesthesia follow up: Airway intact: Yes Vital signs: Temperature 97 F Pulse Rate 96 Respiratory Rate 18 Blood Pressure 126/92 Pulse Oximetry 96 Oxygen Delivery Me thod [ Room Air Current Rate & Del j carlos] Oxygen Delivery Me thod [Rate & Room Air Delivery Changed T o] Oxygen Delivery Me thod Room Air Oxygen Flow Rate [ Rate & 2 Delivery Changed T o] Oxygen Flow Rate 3 Fraction of Inspir ed Oxygen Hydration adequate: Yes Nausea and vomiting: No Pain level: 3 Mental status: Baseline
--- NOTE | 2022-10-06 17:09 | PM.PN ---
Subjective Subjective: Patient seen and examined. She just got back from IR drainage. Abdominal pain is much improved Vitals/I&O/Wt Last Vital Signs Temp 98.3 F 10/06/22 16:34 Pulse 90 10/06/22 16:34 Resp 15 10/06/22 16:34 BP 128/84 10/06/22 16:34 Pulse Ox 98 10/06/22 16:34 O2 Del Method 10/06/22 16:34 O2 Flow Rate 3 10/06/22 08:25 10/06/22 10/06/22 10/06/22 06:59 14:59 22:59 Intake Total 50 / 940 550 / 550 Output Total 600 / 2600 Balance -550 / -1660 550 / 550 Weight last 48 hrs Weight 246 lb Weight 246 lb Physical Exam Narrative: Abdomen: Moderately distended, very mild right lower quadrant tenderness, no guarding rebound or masses Data 10/06/22 04:54 10/06/22 04:54 A&P Assessment and plan (1) Perforated appendicitis: Plan I ordered a repeat CT abdomen pelvis with contrast this morning. CT shows 3 cm abscess near the appendix and a large abscess in the pelvis. IV antibiotics Regular diet If her white blood cell count is coming down tomorrow, she can be discharged home with drain in place and Augmentin to complete a 14-day course of antibiotics. She needs a repeat CT abdomen and pelvis with contrast in 1 week and then I will see her in office afterwards for possible drain removal. Interval appendectomy in 6 to 8 weeks. If she acutely worsens or does not improve, we will need to consider taking her to the operating room sooner. Medical management per hospitalist Attestations Medical Necessity Statement*: Patient requires at least 1 more night in the hospital for IV antibiotics for perforated appendicitis Coding Level of Care Code Acute Code for [facility] Diagnoses Perforated appendicitis K35.32
[2022-10-06] MEDS: nicotine 14 mg Patch 1 PATCH TRANSDERMA (20:04)
[2022-10-06] MEDS: famotidine 20 mg/2 mL INJ IVP (22:47)
[2022-10-07 00:09] VITALS: BP 147/93; PULSE 92; RESP 18; TEMP 36.8; O2SAT 97
[2022-10-07] MEDS: acetaminophen 325 mg Tablet 650 MG PO (02:51)
[2022-10-07 04:26] VITALS: BP 114/74; PULSE 80; RESP 19; TEMP 36.6; O2SAT 95
[2022-10-07 06:05] VITALS: RESP 18
[2022-10-07] MEDS: oxyCODONE 5 mg IR Tab/Cap 10 MG PO ×2 (06:05→12:21)
[2022-10-07 06:30] LABS: Basophils # 0.1 10^3/uL (0.0-0.1); Basophils % 0.5 %; Eosinophils # 0.5 10^3/uL (0.0-0.8); Eosinophils % 4.1 %; Hematocrit 40.4 % (37.0-47.0); Hemoglobin 13.3 g/dL (11.5-15.3); Lymphocytes # 2.5 10^3/uL (0.8-4.8); Lymphocytes % 22.4 %; Mean Corpuscular HGB Conc 32.9 g/dL (30.0-36.0); Mean Corpuscular Hemoglobin 29.5 pg (28.0-34.0); Mean Corpuscular Volume 89.6 fl (81-99); Mean Platelet Volume 10.1 fL (7.4-10.4); Monocytes # 0.7 10^3/uL (0.2-0.9); Neutrophils # 7.29 10^3/uL (1.8-7.7); Neutrophils % 65.4 %; Nucleated Red Blood Cells % 0 %; Platelet Count 387 10^3/cmm (130-400); Red Blood Count 4.51 10^6/uL (4.1-5.3); Red Cell Distribution Width 12.4 % (12.1-15.1); White Blood Count 11.2 10^3/uL (4.0-10.0)
[2022-10-07 06:53] LABS: Alanine Aminotransferase 17 U/L (0-33); Albumin Level 3.1 g/dL (3.5-5.2); Alkaline Phosphatase 171 U/L (35-105); Blood Urea Nitrogen 5 mg/dL (6-20); Calcium 9.3 mg/dL (8.5-10.5); Carbon Dioxide 25 mmol/L (22-29); Chloride 102 mmol/L (98-107); Globulin 3.7 g/dL (1.3-4.6); Glomerular Filtration Rate 90.5 mL/min (90-130); Glucose 96 mg/dL (65-115); Osmolality Calculated 285 mOsm/kg (285-295); Sodium 139 mmol/L (136-145); Total Bilirubin 0.4 mg/dL (0.15-1.2); Total Protein 6.8 g/dL (6.6-8.7)
[2022-10-07 06:55] LABS: Anion Gap 16.7 (5-19); Potassium 4.7 mmol/L (3.5-5.1)
[2022-10-07 07:03] LABS: Aspartate Amino Transferase 5 U/L (0-32)
[2022-10-07 08:00] VITALS: BP 143/91; PULSE 84; RESP 17; TEMP 36.5; O2SAT 97
[2022-10-07] MEDS: piperacillin-tazobactam 3.375 GM in sodium chloride 0.9% (plus) 50 ML IV (08:03)
[2022-10-07 12:00] VITALS: BP 143/91; PULSE 84; RESP 17; TEMP 36.5; O2SAT 97
[2022-10-07 12:21] VITALS: RESP 18
--- NOTE | 2022-10-07 13:54 | P.DS_ITS ---
Discharge Providers Date of Admission: 10/01/22 22:03 Date of Discharge: October 07, 2022 Attending Provider at Admission: Johnathan Sifuentes MD Attending Provider at Discharge: Fernanda Howard MD Primary Care Provider: Ruben Cano Diagnoses at Discharge Discharge Diagnosis (1) Perforated appendicitis: Status: Acute Reason for Visit Reason for Visit: ABD PAIN Brief History: Kristi Villar is a 47 year old female with no significant past medical history other than hypertension not on medications presents to the ER today because of ongoing abdominal pain, nausea and vomiting for last 1 day along with subjective fever.? Patient cannot recollect when she had a last bowel movement. In the ER patient was found to have tachycardia and CT abdomen pelvis was consistent with acute appendicitis with microperforation.? Surgery was consulted and medicine team was asked for admission for further evaluation and management. Hospital Course Hospital Course Patient admitted with appendicitis with perforation. Plan was initially to send her home with oral antibiotics however repeat CAT scan was done due to abdominal pain that was not improving. She was found to have a 3 cm abscess near her appendix and a large abscess 9 cm x 5 cm in the pelvis. IR placed a drain and patient was taught how to flush it at home and to complete oral antibiotic course. During hospital stay she remained on Zosyn. She is to have repeat CT done in 1 week and then to see surgeon in clinic within a week of discharge for possible drain removal. Interval appendectomy to be done in 6 to 8 weeks. If she does not improve or acutely worsens she will need to go to the operating room sooner. Patient Requesting for discharge repeatedly due to some family issues at home. She agreed to take care of the drain and she was taught by nursing staff and provided with flushes as well. She was asked to call the surgeons clinic if the drain would not flush if there is any issues. She agreed to the plan and was discharged home safely. Physical Exam Narrative: General: no acute distress, appears anxious HEENT: eomi Chest: Lungs clear to auscultation. CVS: Heart rate and rhythm regular. No rubs or murmurs. Abdomen: Soft, Bowel sounds active. . No apparent guarding present however there is tenderness to palpation in right lower quadrant. Neuro: No focal sensory or motor deficits. Discharge Data Studies Completed and Pending Completed Studies During Hospitalization Category Date Time Status CT abdomen pelvis w con* [id number] Routine Cat Scan 10/05/22 11:[address] abdomen pelvis w con* [id number] Stat Cat Scan 10/01/22 21:[address] drain appendix absces [id number] Routine Cat Scan 10/06/22 12:30 Completed XR chest 1V portable [id number] Stat Exams 10/01/22 21:20 Completed US venous duplex lower extremity RT [CV venous duplex Ultrasound 10/03/22 10:15 [place] [id number]] Routine Pending at discharge Category Date Time Status Bacterial Antigen Stat Lab 10/01/22 23:01 Ordered Body Fluid Culture & GS Routine Lab 10/06/22 14:28 Results Legionella Antigen STAT Routine Lab 10/01/22 23:22 Ordered MRSA by PCR Routine Lab 10/01/22 23:22 Received Urinalysis Stat Lab 10/01/22 21:20 Ordered Radiology Impressions Chest X-Ray 10/01/22 21:20 IMPRESSION: 1. Mild cardiomegaly suspected. 2. Negative for infiltrate Venous Duplex 10/03/22 10:15 IMPRESSION: No evidence of deep vein thrombosis, right lower extremity. Abdomen/Pelvis CT 10/05/22 11:21 IMPRESSION: 1. As indicated on the prior examination ruptured appendicitis with persistent abscess at the rupture site measuring 3.0 x 2.1 cm. 2. Additional development of a large RIGHT lower quadrant abscess measuring 5.0 x 9.4 cm. 3. Dilated RIGHT ureter extends along the lateral aspect of the abscess cavity. The ureter is dilated as a sympathetic response to the adjacent abscess. Notified Celestino Weber DO at 10/05/2022 2:[address] 10/06/22 12:30 IMPRESSION: 1. Uncomplicated 8 Uzbek pelvic pigtail drain placement. 2. Recommend draining flushing 8-10 cc normal saline 1-2 times per day Laboratory Results WBC 11.2 10^3/uL (4.0-10.0) H 10/07/22 06:19 RBC 4.51 10^6/uL (4.1-5.3) 10/07/22 06:19 Hgb 13.3 g/dL (11.5-15.3) 10/07/22 06:19 Hct 40.4 % (37.0-47.0) 10/07/22 06:19 MCV 89.6 fl (81-99) 10/07/22 06:19 MCH 29.5 pg (28.0-34.0) 10/07/22 06:19 MCHC 32.9 g/dL (30.0-36.0) 10/07/22 06:19 RDW 12.4 % (12.1-15.1) 10/07/22 06:19 Plt Count 387 10^3/cmm (130-400) 10/07/22 06:19 MPV 10.1 fL (7.4-10.4) 10/07/22 06:19 Neut % (Auto) 65.4 % 10/07/22 06:19 Lymph % (Auto) 22.4 % 10/07/22 06:19 [place] % (Auto) 6.0 % 10/07/22 06:19 Eos % (Auto) 4.1 % 10/07/22 06:19 Baso % (Auto) 0.5 % 10/07/22 06:19 Neut # (Auto) 7.29 10^3/uL (1.8-7.7) 10/07/22 06:19 Lymph # (Auto) 2.5 10^3/uL (0.8-4.8) 10/07/22 06:19 [place] # (Auto) 0.7 10^3/uL (0.2-0.9) 10/07/22 06:19 Eos # (Auto) 0.5 10^3/uL (0.0-0.8) 10/07/22 06:19 Baso # (Auto) 0.1 10^3/uL (0.0-0.1) 10/07/22 06:19 Nucleated RBC % (auto) 0 % 10/07/22 06:19 Nucleated RBCs # 0.0 /100WBC 10/07/22 06:19 Sodium 139 mmol/L (136-145) 10/07/22 Unknown Potassium 4.7 mmol/L (3.5-5.1) 10/07/22 Unknown Chloride 102 mmol/L (98-107) 10/07/22 Unknown Carbon Dioxide 25 mmol/L (22-29) 10/07/22 Unknown Anion Gap 16.7 (5-19) 10/07/22 Unknown BUN 5 mg/dL (6-20) L 10/07/22 Unknown Creatinine 0.7 mg/dL (0.5-0.9) 10/07/22 Unknown GFR Calculation 90.5 mL/min (90-130) 10/07/22 Unknown Glucose 96 mg/dL (65-115) 10/07/22 Unknown Estimat Average Glucose 114 10/02/22 05:16 Hemoglobin A1c 5.6 % (4.0-6.0) 10/02/22 05:16 Calculated Osmolality 285 mOsm/kg (285-295) 10/07/22 Unknown Lactic Acid 1.2 mmol/L (0.5-2.2) 10/01/22 21:40 Calcium 9.3 mg/dL (8.5-10.5) 10/07/22 Unknown Phosphorus 3.1 mg/dL (2.5-4.5) 10/02/22 05:16 Magnesium 2.0 mg/dL (1.7-2.3) 10/06/22 04:54 Iron 30 ug/dL (37-145) L 10/01/22 20:04 TIBC 318 mcg/dl 10/01/22 20:04 % Saturation 9.4 % (20-50) L 10/01/22 20:04 Unsat Iron Binding 288 ug/dL (112-347) 10/01/22 20:04 Total Bilirubin 0.4 mg/dL (0.15-1.2) 10/07/22 Unknown AST 5 U/L (0-32) 10/07/22 Unknown ALT 17 U/L (0-33) 10/07/22 Unknown Alkaline Phosphatase 171 U/L (35-105) H 10/07/22 Unknown C-Reactive Protein 255.2 mg/L (0.0-4.9) H 10/04/22 09:23 Total Protein 6.8 g/dL (6.6-8.7) 10/07/22 Unknown Albumin 3.1 g/dL (3.5-5.2) L 10/07/22 Unknown Globulin 3.7 g/dL (1.3-4.6) 10/07/22 Unknown Triglycerides 45 mg/dL (0-150) 10/02/22 05:16 Cholesterol 122 mg/dL (0-200) 10/02/22 05:16 LDL Cholesterol, Calc 61 mg/dL (50-129) 10/02/22 05:16 Total VLDL Cholesterol 9 mg/dL (0-30) 10/02/22 05:16 HDL Cholesterol 52 mg/dL (60-100) L 10/02/22 05:16 Cholesterol/HDL Ratio 2.35 mg/dL (0.0-4.40) 10/02/22 05:16 Lipase 14 U/L (13-60) 10/01/22 20:04 Vitamin B12 323 pg/mL (232-1245) 10/01/22 20:04 Folate 12.9 ng/mL (4.8-37.3) 10/01/22 21:40 Procalcitonin 0.13 ng/mL (0-0.5) 10/01/22 20:04 TSH 1.41 uIU/mL (0.27-4.20) 10/01/22 20:04 Vitals Last Vital Signs Temp 97.7 F 10/07/22 12:00 Pulse 84 10/07/22 12:00 Resp 18 10/07/22 12:21 BP 143/91 10/07/22 12:00 Pulse Ox 97 10/07/22 12:00 O2 Del Method 10/07/22 12:00 O2 Flow Rate 3 10/06/22 08:25 Discharge Plan Discharge Patient Disposition: Home Condition: Stable Prescriptions: New amoxicillin-pot clavulanate 875-125 mg tablet 1 tab PO BID 14 Days Qty: 28 0RF Continued (DME) Cam Walker See Rx Instructions .ROUTE .MEDSUPPLY Qty: 1 0RF Rx Instructions: As directed acetaminophen 500 mg Tablet 1,000 mg PO Q6H PRN (Reason: Pain) guaifenesin 100 mg/5 mL Liquid 200 mg PO Q4H PRN (Reason: Congestion) ibuprofen 200 mg Tablet 400 - 800 mg PO Q6H PRN (Reason: Pain) atenolol 50 mg tablet 50 mg PO Q12H Discharge Orders: Discharge Order (Routine); Ordered 10/07/22 Ordered By: Fernanda Howard Other Ambulatory Orders: CT abdomen pelvis w con* [id number] (Routine) Timeframe: 20221012 Facility: [facility] - Location: [facility] Ordered By: Fernanda Howard Referrals: Celestino Weber DO [Physician] - 10/14/22 2:15 pm (Dr. Weber would like to see specifically in 1 week. ) Sharif Riddle FNP [Nurse Practitioner] - 10/09/22 10:30 am (You have a new patient/hospital follow up with Sharif Riddle on Wednesday, October 09, 2022 at 10:30 am. If you have any questions or need to reschedule please contact them at [phone].) Discharge Diet: Regular Discharge Activity: Limit activity as instructed Patient Instructions: Amoxicillin/Clavulanate Potassium (By mouth), Appendiciti s (GEN), Sepsis (DC), Opioid Safety Activity Restrictions/Additional Instructions: Please flush the drain twice a day with 10 cc of normal saline flush. If the drain does not drain, please call Dr. Weber's office immediately. If you develop a fever, worsening abdominal pain, bloody drainage, please return to ER immediately. Please see Dr. Weber in his office within 1 week. Before seeing him, please have a ct abdomen done as outpatient. Please call Dr. Weber's office with any questions you may have. Please continue to take your antibiotics as directed. Follow up with PCP as directed. Discharge Attestations Time Spent in Discharge Care*: greater than 30 min Quality Metrics Clinical Quality Measures [ No reported AMI, CVA or VTE this stay] Coding Level of Care Code 43029 Total time (in minutes) for Discharge: 35 Diagnoses Perforated appendicitis K35.32
== END 2022-10-07 15:18 | disposition home or self-care (01) | DRG 372 ==
LOC: ER 22:02 → MEDSURG 22:21
PROVIDERS: Family Medicine; Radiology Neuroradiology; Surgery Surgical Critical Care; Admitting Provider Student in an Organized Health Care Education/Training Program; Emergency Provider Emergency Medicine; PCP Family Medicine; Visit Provider Internal Medicine
PROC: 0W9J30Z Drainage of Pelvic Cavity with Drainage Device, Percutaneous Approach (ICD-10-PCS; CPT 75989; principal; 2022-10-06 12:30)
DX: K35.33 Acute appendicitis with perforation, localized peritonitis, and gangrene, with abscess (principal); Z68.41 Body mass index [BMI] 40.0-44.9, adult; E86.0 Dehydration; E66.01 Morbid (severe) obesity due to excess calories; F41.9 Anxiety disorder, unspecified; Z72.0 Tobacco use
CPT/HCPCS: 36415; 49406; 71045; 74177; 80053; 80061; 82607; 82746; 83036; 83540; 83550; 83605; 83690; 83735; 84100; 84145; 84443; 85025; 86140; 87040; 87070; 87075; 87077; 87186; 87205; 87641; 93005; 93971; 94664; 96365; 96374; 96375; 96376; 99152; 99153; 99232; 99255; 99285; J1170; J2250; J2405; J2543; J2704; J3010; J3490; J7030; J7042; Q9967

== ENCOUNTER 2022-10-14 15:48 | Outpatient (CLI) | payer MEDICAID, SELFPAY ==
--- NOTE | 2022-10-14 17:00 | CT_ITS ---
WS: [id number] CT ABDOMEN PELVIS TECHNIQUE: Contrast-enhanced CT of the abdomen and pelvis with coronal and sagittal reformatted image s. CLINICAL INFORMATION: assess intraabdominal abscesses COMPARISON: October 05, 2022 DLP: 922.[address] scans at [facility] use at least one of these dose optimization techniques: automated e xposure control; mA and/or kV adjustment per patient size (includes targeted exams where dose is matc hed to clinical indication); or iterative reconstruction. FINDINGS: Previously described peripherally enhancing pelvic abscess is nearly completely resolved with a small amount of residual peripheral enhancing fluid at the tip of the pigtail catheter along the RIGHT adn exa. Small amount of residual fluid measures 1.4 x 2.5 x 2.5 CM. Adjacent abutting sigmoid colon. Previously described findings of perforated acute appendicitis in RIGHT lower quadrant appears slight ly improved compared to previous. A few residual locules of air. Induration about the perforated appe ndix. Appendix appears more decompressed today. Residual induration in the RIGHT lower quadrant abou t the appendix. No drainable fluid collections in this area. Previously described pleural effusions have resolved. Mild diffuse fatty infiltration liver. Cholecystectomy clips. Lung bases are well aerated. A few calc ified granulomas in the lung bases. Normal spleen. Normal GE junction. Adrenal glands are normal. Nor mal renal parenchymal enhancement. Bilateral parenchymal scarring. Normal caliber abdominal aorta. Normal pancreatic parenchymal enhancement. Normal portal vein and spl enic vein. Fat-containing umbilical hernia. No hydronephrosis in RIGHT kidney. Slightly ectatic dista l RIGHT ureter has significantly improved compared to previous. No evidence of obstruction. Bladder i s decompressed. CT/CT abdomen pelvis w con* [id number] IMPRESSION: 1. Previously described pelvic abscess is almost completely resolved with a sm all amount of residual fluid along the RIGHT adnexa measuring 1.5 x 2.5 x 2.5 c m. This is at the tip of the pigtail catheter. 2. Distal RIGHT ureterectasis has improved with slight residual ectasia of the distal RIGHT ureter. No hydronephrosis. 3. Similar findings of appendicitis RIGHT lower quadrant improved compared to previous. A few residual locules of free air with persistent surrounding indura tion with a few reactive lymph nodes. Appendix appears more decompressed today. No drainable fluid collections in this area. 4. Previously described pleural effusions have resolved.
== END 2022-10-14 15:49 | disposition home or self-care (01) ==
LOC: RAD 15:51
PROVIDERS: Visit Provider Internal Medicine
DX: K65.1 Peritoneal abscess (principal); N13.4 Hydroureter; K76.0 Fatty (change of) liver, not elsewhere classified
CPT/HCPCS: 74177; Q9967

== ENCOUNTER 2022-10-29 21:27 | Inpatient (IN) | payer MEDICAID, SELFPAY ==
[2022-10-29] VITALS (7 sets, daily range): BP systolic 153–160; BP diastolic 106–135; PULSE 96–114; RESP 17–27; TEMP 36.8; O2SAT 95–100; BMI 33.3
--- NOTE | 2022-10-29 21:31 | XRR_ITS ---
PROCEDURE INFORMATION: Exam: XR Right Ankle Exam date and time: 10/29/2022 9:58 PM Age: 47 years old Clinical indication: Injury or trauma; Fall; Fracture, traumatic; Displaced; Ankle; Right; Bimalleolar TECHNIQUE: Imaging protocol: Radiologic exam of the right ankle. Views: 3 or more views. COMPARISON: [place] [id number] 10/03/2022 5:09 PM FINDINGS: Bones/joints: Distal fibular comminuted fracture with overlap of the fracture fragments. Medial malleolar horizontal with approximately 1/2 shaft displacement. Medial displacement of the tibia relative to the talus by 16 mm. Suspected posterior malleolar fracture with articular involvement at the tibiotalar joint. Calcified heel spur. Soft tissues: Normal. XR/XR ankle RT min 3V* [id number] IMPRESSION: 1. Distal fibular comminuted fracture with overlap of the fracture fragments. 2. Medial malleolar horizontal with approximately 1/2 shaft displacement. 3. Medial displacement of the tibia relative to the talus by 16 mm. 4. Suspected posterior malleolar fracture with articular involvement at the tibiotalar joint. 5. Calcified heel spur.
[2022-10-29] MEDS: LORazepam 2 mg/mL INJ 1 mL 1 MG IVP (21:41)
[2022-10-29] MEDS: HYDROmorphone 1 mg/mL INJ 1 mL 0.5 MG IVP (21:43)
--- NOTE | 2022-10-29 21:45 | W.ED.EXTPRO ---
HPI - Extremity Problem General: Chief complaint: Extremity Injury, Lower Stated complaint: ANKLE PAIN Time Seen by Provider: 10/29/22 21:31 Source: EMS Mode of arrival: EMS Limitations: no limitations History of Present Illness: 47-year-old female who slipped and fell roughly an hour ago she had fell onto her right ankle she has obvious fracture deformity that right ankle patient is brought in by EMS it is splinted she has severe pain she rates a 9 out of 10 denies any other injuries denies hitting her head Associated symptoms: Deny chest pain, fever(s) or rash Review of Systems Const: Denies: fever(s), chills, body aches or change in appetite Eyes: Denies: blurry vision or eye discomfort ENMT: Denies: throat pain or dental pain Card: Denies: chest pain Resp: Denies: dyspnea GI: Denies: abdominal pain, nausea, vomiting or diarrhea : Denies: dysuria Musc: Reports: extremity pain Skin/Breast: Denies: rash Neuro: Denies: headache(s) Psych: Denies: depression Leland/Lymph: Denies: easy bruising All/Imm: Denies: urticaria PFSH ED PFSH: Medical History Acute appendicitis Dental abscess Fracture of ankle, lateral malleolus, left, closed HTN (hypertension) Leukocytosis Perforated appendicitis Surgical History H/O: hysterectomy History of laparoscopic cholecystectomy History of nasal surgery Family History Father CAD (coronary artery disease) Hypertension Mother CAD (coronary artery disease) Hypertension Seizures Social History Smoking and tobacco status: current some day smoker Alcohol intake: former Physical Exam Const: COMMON NORMALS: patient oriented x3 and healthy appearing GENERAL APPEARANCE: in distress HENMT: COMMON NORMALS: normocephalic and atraumatic HEAD & SCALP: normocephalic and atraumatic Eye: COMMON NORMALS: Equal, round and reactive pupils present and EOMs intact bilaterally PUPIL: Yes Equal, round and reactive pupils present Neck/C-Spine: COMMON NORMALS: full ROM and supple Chest: COMMONS NORMALS: normal inspection of the chest and normal palpation of entire chest wall Resp: COMMON NORMALS: normal respiratory effort, No retractions, No use of accessory muscles and clear to auscultation bilaterally AUSCULTATION: clear to auscultation bilaterally Cardio: COMMON NORMALS: regular rate, regular rhythm and No murmurs present (Cardio) RATE: regular rate RHYTHM: regular rhythm GI: COMMON NORMALS: Normal to inspection, nondistended, normoactive bowel sounds present, Soft to palpation, non-tender and no masses PALPATION: Yes Soft to palpation Extremity: NARRATIVE EXTREMITY EXAM: Obvious deformity to right ankle distal pulses intact. Neuro: COMMON NORMALS: patient oriented x3, moves all extremities and no focal motor deficits Psych: COMMON NORMALS: mental status grossly normal, Normal thought process present and cooperative THOUGHT PROCESS: Normal thought process present Skin: COMMON NORMALS: no rashes or lesions noted and no wounds GENERAL SKIN EXAM: no rashes or lesions noted Course Vital Signs: Vital signs: Vital Signs Temperature 98.3 F 10/29/22 21:29 Pulse Rate 96 10/29/22 22:48 Respiratory Rate 18 10/29/22 22:48 Blood Pressure 160/110 10/29/22 22:48 Pulse Oximetry 97 10/29/22 22:48 Oxygen Delivery Me thod 10/29/22 22:48 MDM - Extremity (Nontraumatic) Medical Decision Making Patient presents here with ankle fracture from a fall she required multiple meds for pain control do not believe she is stable for discharge home I spoke to the materials technician along with hospitalist and will admit at this time. Lab Data 10/29/22 22:19 10/29/22 22:19 Laboratory Results WBC 8.9 10^3/uL (4.0-10.0) 10/29/22 22:19 RBC 4.33 10^6/uL (4.1-5.3) 10/29/22 22:19 Hgb 12.6 g/dL (11.5-15.3) 10/29/22 22:19 Hct 38.9 % (37.0-47.0) 10/29/22 22:19 MCV 89.8 fl (81-99) 10/29/22 22:19 MCH 29.1 pg (28.0-34.0) 10/29/22 22:19 MCHC 32.4 g/dL (30.0-36.0) 10/29/22 22:19 RDW 12.8 % (12.1-15.1) 10/29/22 22:19 Plt Count 340 10^3/cmm (130-400) 10/29/22 22:19 MPV 10.2 fL (7.4-10.4) 10/29/22 22:19 Neut % (Auto) 66.2 % 10/29/22 22:19 Lymph % (Auto) 24.0 % 10/29/22 22:19 [place] % (Auto) 6.0 % 10/29/22 22:19 Eos % (Auto) 2.9 % 10/29/22 22:19 Baso % (Auto) 0.7 % 10/29/22 22:19 Neut # (Auto) 5.89 10^3/uL (1.8-7.7) 10/29/22 22:19 Lymph # (Auto) 2.1 10^3/uL (0.8-4.8) 10/29/22 22:19 [place] # (Auto) 0.5 10^3/uL (0.2-0.9) 10/29/22 22:19 Eos # (Auto) 0.3 10^3/uL (0.0-0.8) 10/29/22 22:19 Baso # (Auto) 0.1 10^3/uL (0.0-0.1) 10/29/22 22:19 Nucleated RBC % (auto) 0 % 10/29/22 22:19 Nucleated RBCs # 0.0 /100WBC 10/29/22 22:19 PT 12.40 SECONDS (12.1-14.9) 10/29/22 22:19 INR 0.89 (0.8-1.2) 10/29/22 22:19 Sodium 141 mmol/L (136-145) 10/29/22 22:19 Potassium 3.6 mmol/L (3.5-5.1) 10/29/22 22:19 Chloride 108 mmol/L (98-107) H 10/29/22 22:19 Carbon Dioxide 24 mmol/L (22-29) 10/29/22 22:19 Anion Gap 12.6 (5-19) 10/29/22 22:19 BUN 9 mg/dL (6-20) 10/29/22 22:19 Creatinine 0.8 mg/dL (0.5-0.9) 10/29/22 22:19 GFR Calculation 77.6 mL/min (90-130) L 10/29/22 22:19 Glucose 108 mg/dL (65-115) 10/29/22 22:19 Calculated Osmolality 291 mOsm/kg (285-295) 10/29/22 22:19 Calcium 8.8 mg/dL (8.5-10.5) 10/29/22 22:19 Total Bilirubin 0.2 mg/dL (0.15-1.2) 10/29/22 22:19 AST 12 U/L (0-32) 10/29/22 22:19 ALT 17 U/L (0-33) 10/29/22 22:19 Alkaline Phosphatase 122 U/L (35-105) H 10/29/22 22:19 Total Protein 6.7 g/dL (6.6-8.7) 10/29/22 22:19 Albumin 3.6 g/dL (3.5-5.2) 10/29/22 22:19 Globulin 3.1 g/dL (1.3-4.6) 10/29/22 22:19 HCG, Qual Negative (Negative) 10/29/22 22:19 Discharge Plan Discharge Patient Disposition: Admitted As Inpatient Clinical Impression: Ankle fracture Condition: Stable Prescriptions: No Action (DME) Cam Walker See Rx Instructions .ROUTE .MEDSUPPLY Qty: 1 0RF Rx Instructions: As directed acetaminophen 500 mg Tablet 1,000 mg PO Q6H PRN (Reason: Pain) guaifenesin 100 mg/5 mL Liquid 200 mg PO Q4H PRN (Reason: Congestion) ibuprofen 200 mg Tablet 400 - 800 mg PO Q6H PRN (Reason: Pain) atenolol 50 mg tablet 50 mg PO Q12H Coding Level of Care Code ED Nurse Aide Evaluator for Andi Velasquez
[2022-10-29 22:29] LABS: Basophils # 0.1 10^3/uL (0.0-0.1); Basophils % 0.7 %; Eosinophils # 0.3 10^3/uL (0.0-0.8); Eosinophils % 2.9 %; Hematocrit 38.9 % (37.0-47.0); Hemoglobin 12.6 g/dL (11.5-15.3); Lymphocytes # 2.1 10^3/uL (0.8-4.8); Mean Corpuscular HGB Conc 32.4 g/dL (30.0-36.0); Mean Corpuscular Hemoglobin 29.1 pg (28.0-34.0); Mean Corpuscular Volume 89.8 fl (81-99); Mean Platelet Volume 10.2 fL (7.4-10.4); Monocytes # 0.5 10^3/uL (0.2-0.9); Neutrophils # 5.89 10^3/uL (1.8-7.7); Neutrophils % 66.2 %; Nucleated Red Blood Cells % 0 %; Platelet Count 340 10^3/cmm (130-400); Red Blood Count 4.33 10^6/uL (4.1-5.3); Red Cell Distribution Width 12.8 % (12.1-15.1); White Blood Count 8.9 10^3/uL (4.0-10.0)
[2022-10-29 22:37] LABS: HCG, Serum Qual Negative (Negative)
[2022-10-29 22:41] LABS: INR 0.89 (0.8-1.2)
[2022-10-29 22:45] LABS: Alanine Aminotransferase 17 U/L (0-33); Albumin Level 3.6 g/dL (3.5-5.2); Alkaline Phosphatase 122 U/L (35-105); Anion Gap 12.6 (5-19); Aspartate Amino Transferase 12 U/L (0-32); Blood Urea Nitrogen 9 mg/dL (6-20); Calcium 8.8 mg/dL (8.5-10.5); Carbon Dioxide 24 mmol/L (22-29); Chloride 108 mmol/L (98-107); Creatinine Clr Calc Pharmacy 98.8167; Globulin 3.1 g/dL (1.3-4.6); Glomerular Filtration Rate 77.6 mL/min (90-130); Glucose 108 mg/dL (65-115); Osmolality Calculated 291 mOsm/kg (285-295); Potassium 3.6 mmol/L (3.5-5.1); Sodium 141 mmol/L (136-145); Total Bilirubin 0.2 mg/dL (0.15-1.2); Total Protein 6.7 g/dL (6.6-8.7)
--- NOTE | 2022-10-29 22:45 | XRR_ITS ---
PROCEDURE INFORMATION: Exam: XR Right Ankle Exam date and time: 10/29/2022 10:53 PM Age: 47 years old Clinical indication: Injury or trauma; Fall; Fracture, traumatic; Closed fracture; Ankle; Right; Bimalleolar; Additional info: Post reduction TECHNIQUE: Imaging protocol: Radiologic exam of the right ankle. Views: 1 or 2 views. COMPARISON: CR (LOW EXM, ) 10/29/2022 9:58 PM FINDINGS: Bones/joints: Distal fibular comminuted fracture with impaction with improved alignment compared to prior exam. Medial malleolar horizontal fracture demonstrates near anatomic alignment. Posterior malleolar fracture again suspected. Tibia now demonstrates near anatomic alignment relative to the talus. Splint material seen about the ankle. Soft tissues: Normal. XR/XR ankle RT 2V [id number] IMPRESSION: 1. Distal fibular comminuted fracture with impaction with improved alignment compared to prior exam. 2. Medial malleolar horizontal fracture demonstrates near anatomic alignment. 3. Posterior malleolar fracture again suspected. 4. Tibia now demonstrates near anatomic alignment relative to the talus. 5. Splint material seen about the ankle.
[2022-10-29] MEDS: propofol 10 mg/mL SDV 20 mL 130 MG IVP (22:54)
--- NOTE | 2022-10-29 22:59 | CTR_ITS ---
PROCEDURE INFORMATION: Exam: CT Right Lower Extremity Without Contrast, Ankle Exam date and time: 10/29/2022 11:26 PM Age: 47 years old Clinical indication: Injury or trauma; Blunt trauma; Right; Patient HX: Fall tonight on loose gravel with RT ankle deformity. Performed post reduction. ; Additional info: FX TECHNIQUE: Imaging protocol: CT of the right lower extremity without contrast was performed. Exam focused on the ankle. Radiation optimization: All CT scans at this facility use at least one of these dose optimization techniques: automated exposure control; mA and/or kV adjustment per patient size (includes targeted exams where dose is matched to clinical indication); or iterative reconstruction. REPORTING DATA: Count of CT and Cardiac NM exams in prior 12 months: This patient has received 4 known CTs and 0 known cardiac nuclear medicine studies in the 12 months prior to the current study. COMPARISON: CR XR ankle RT 2V [id number] 10/29/2022 10:53 PM RADIATION DOSE METRICS: Total DLP (mGy-cm): 125.86 FINDINGS: Bones/joints: Distal fibular comminuted somewhat displaced fracture with improved alignment compared to prior exam. Medial malleolar horizontal minimally displaced fracture. Distal tibia demonstrates mild medial displacement relative to the talus by approximately 4.8 mm. Posterior malleolar vertically oriented mildly displaced comminuted fracture with articular involvement at the tibiotalar joint. Small calcified heel spur. Soft tissues: Distal Achilles tendon degenerative calcification. Subcutaneous edema about the foot and ankle. CT/CT ankle RT wo con* [id number] IMPRESSION: 1. Distal fibular comminuted somewhat displaced fracture with improved alignment compared to prior exam 2. Medial malleolar horizontal minimally displaced fracture. 3. Distal tibia demonstrates mild medial displacement relative to the talus by approximately 4.8 mm. 4. Posterior malleolar vertically oriented mildly displaced comminuted fracture with articular involvement at the tibiotalar joint. 5. Small calcified heel spur. 6. Distal Achilles tendon degenerative calcification. 7. Subcutaneous edema about the foot and ankle.
[2022-10-29] MEDS: HYDROmorphone 1 mg/mL INJ 1 mL IVP (23:09)
[2022-10-30] VITALS (20 sets, daily range): BP systolic 124–163; BP diastolic 83–107; PULSE 80–96; RESP 13–18; TEMP 36.1–37.6; O2SAT 92–98
[2022-10-30] MEDS: nicotine 21 mg Patch 1 PATCH TRANSDERMA (00:29)
--- NOTE | 2022-10-30 01:18 | P.HP_ITS ---
Providers/Chief Complaint Admitting Physician: Esteban Cgae Chief Complaint: ANKLE PAIN History of Present Illness 47-year-old lady recently hospitalized for acute appendicitis with periappendiceal abscess, underwent IR drainage, is still on antibiotics currently on Augmentin, is post to be following up with surgery for definitive treatment with appendectomy on 30 November Presented to ER tonight after slipping on some gravel while walking downhill, falling down with pain and deformity of the right ankle with finding of right a nkle fracture. Has been in quite a bit of pain. Reduced in ER. Still hurting. Podiatry was consulted for further assessment management. She states she otherwise has been doing better, has been eating regular food. Denies any exertional limitations, not short of breath, no chest pain. Review of Systems Const: Denies: fever(s), chills, body aches or malaise ENMT: Denies: throat pain or ear or mastoid pain Card: Denies: chest pain, edema, pre-syncope or dyspnea on exertion Resp: Denies: dyspnea, productive cough, change in phlegm color or hemoptysis GI: Denies: abdominal pain, nausea, vomiting, diarrhea, constipation, hematochezia or melena : Denies: flank pain, urinary frequency or hematuria Musc: Reports: joint pain Skin/Breast: Denies: rash or new lesions Neuro: Denies: headache(s), numbness in extremities, weakness in extremities, dizziness, confusion or seizure-like activity Medications/Allergies Home Medications Medication Instructions Recorded Confirmed Last Taken Type Cam Walker #1 ea 10/31/20 10/20/22 Unknown Rx acetaminophen 500 mg tablet 1,000 mg PO Q6H PRN Pain 10/02/22 10/20/22 Unknown History atenolol 50 mg tablet 50 mg PO Q12H 10/02/22 10/20/22 3 Weeks Ago History ~09/11/22 last filled 02/22/22 guaifenesin 100 mg/5 mL oral liquid 200 mg PO Q4H PRN Congestion 10/02/22 10/20/22 Unknown History ibuprofen 200 mg tablet 400 - 800 mg PO Q6H PRN Pain 10/02/22 10/20/22 Unknown History Allergies Allergy/AdvReac Type Severity Reaction Status Date / Time morphine Allergy Unknown Verified 10/20/22 14:58 PFSH Acute PFSH: Medical History Acute appendicitis Dental abscess Fracture of ankle, lateral malleolus, left, closed HTN (hypertension) Leukocytosis Perforated appendicitis Surgical History H/O: hysterectomy History of laparoscopic cholecystectomy History of nasal surgery Family History Father CAD (coronary artery disease) Hypertension Mother CAD (coronary artery disease) Hypertension Seizures Social History Smoking and tobacco status: current some day smoker Alcohol intake: former Vitals/I&O/Wt Last Vital Signs Temp 98.3 F 10/29/22 21:29 Pulse 96 10/29/22 22:48 Resp 17 10/29/22 23:39 BP 159/106 10/29/22 23:39 Pulse Ox 95 10/29/22 23:39 O2 Del Method 10/29/22 22:48 Weight last 48 hrs Weight 90.718 kg Physical Exam Narrative: She states she is in pain and asking for something for anxiety. Const: COMMON NORMALS: patient oriented x3 and alert GENERAL APPEARANCE: cooperative NUTRITIONAL APPEARANCE: obese ORIENTATION/CONSCIOUSNESS: Yes awake HENMT: COMMON NORMALS: oropharynx normal Neck/C-Spine: COMMON NORMALS: no JVD Resp: COMMON NORMALS: normal respiratory effort and clear to auscultation bilaterally AUSCULTATION: clear to auscultation bilaterally Cardio: COMMON NORMALS: no JVD, regular rhythm, S1 normal heart sound present, S2 normal heart sound present and No murmurs present (Cardio) RHYTHM: regular rhythm HEART SOUNDS: S1 normal heart sound present and S2 normal heart sound present GI: COMMON NORMALS: Normal to inspection, nondistended, normoactive bowel sounds present, Soft to palpation and non-tender PALPATION: Yes Soft to palpation Extremity: COMMON NORMALS: no joint enlargement and no pedal edema NARRATIVE EXTREMITY EXAM: Right lower extremity/ankle reduced with splint. Toes appear perfused. Neuro: COMMON NORMALS: patient oriented x3 and moves all extremities SENSORIUM/ORIENTATION: Yes alert Data 10/29/22 22:19 10/29/22 22:19 A&P Assessment and plan (1) Ankle fracture: States mechanical fall, tripped on gravel walking downhill. Reviewed CT. Comminuted distal fibular fracture somewhat displaced. Medial malleolar horizontal minimally displaced fracture. Distal tibia with mild medial displacement relative to talus. Posterior malleolar vertically oriented mildly displaced commuted fracture with articular involvement at the tibiotalar joint. Otherwise states has been improving from her recent appendicitis, denies any exertional limitations. No dyspnea or chest pain on exertion. Podiatry is consulted for assessment management of the fracture. She otherwise denies any lung or cardiovascular disease. Not much in addition could be optimized prior to proceeding with surgery, continue beta-tyesha. Would proceed with usual precautions. In pain and anxious. Currently requiring IV pain medication with Dilaudid. Additionally having significant anxiety, and Xanax for today and tomorrow as needed. CBC noted. Repeat blood counts to reassess for any anemia postoperatively. Qualifiers: Encounter type: initial encounter Fracture type: closed Laterality: right Qualified Code(s): S82.891A - Other fracture of right lower leg, initial encounter for closed fracture Plan Recent complicated appendicitis with appendiceal abscess, has been improving. Tolerating regular diet. States he is scheduled for definitive treatment with appendectomy for 11/30. Continue Augmentin. Incidentally noted alkaline phosphatase elevation: Repeat liver parameters are present. HTN: Monitor blood pressure. Continue beta-tyesha. Smoking addiction: Encourage cessation. Small calcified heel spur incidentally seen on CT Distal Achilles tendon degenerative calcification Discussed with ER physician, ER documentation reviewed. Attestations Medical Necessity Statement*: Admission Diagnoses Ankle fracture S82.891A Encounter type: initial encounter Fracture type: closed Laterality: right
[2022-10-30] MEDS: HYDROmorphone 1 mg/mL INJ 1 mL 0.5 MG IVP ×3 (01:29→05:37)
[2022-10-30] MEDS: amoxicillin-clav 875-125 mg Tablet 1 TAB PO ×3 (02:29→17:13)
[2022-10-30] MEDS: ALPRAZolam 0.5 mg Tablet PO ×2 (05:34→20:28)
[2022-10-30] MEDS: HYDROmorphone 1 mg/mL INJ 1 mL IVP ×4 (06:52→18:59)
--- NOTE | 2022-10-30 08:01 | PM.CONSULT ---
Providers/Reason For Consult Consulting Physician/Specialty*: Dr. Fernando Melchor, D.P.M. Reason for Consult*: Right trimalleolar ankle fracture Attending Physician: Gabriela Soto MD History of Present Illness History of Present Illness Kristi Villar is a 47 year old female who sustained a right trimalleolar ankle fracture yesterday evening 10/29/2022 when she was walking down a gravel hill lost her balance tripped and fell. Patient denies hitting her head. She states that she broke her left ankle in the past and this is nothing in comparison to the pain that she is experiencing today. She presented to the emergency department via EMS where she was evaluated and the ankle fracture was reduced. Since reduction she is having extreme persistent pain that is not well controlled with pain medication. Given the extent of the injury we will need to proceed with surgical intervention sooner than later. Review of Systems General: Reports: 10 or more systems reviewed and unremarkable except in HPI and below Const: Denies: fever(s), chills or fatigue Eyes: Denies: change in vision ENMT: Denies: sinus pain Card: Denies: chest pain, palpitations or lightheadedness Resp: Denies: dyspnea GI: Denies: abdominal pain, nausea or vomiting Musc: Reports: extremity pain, extremity swelling and limited range of motion; Denies: neck pain or back pain Skin/Breast: Reports: skin swelling Neuro: Denies: numbness in extremities Medications/Allergies Home Medications Medication Instructions Recorded Confirmed Last Taken Type Cam Walker #1 ea 10/31/20 10/30/22 Unknown Rx acetaminophen 500 mg tablet 1,000 mg PO Q6H PRN Pain 10/02/22 10/30/22 Unknown History atenolol 50 mg tablet 50 mg PO Q12H 10/02/22 10/30/22 10/29/22 08:00 History guaifenesin 100 mg/5 mL oral liquid 200 mg PO Q4H PRN Congestion 10/02/22 10/30/22 Unknown History ibuprofen 200 mg tablet 400 - 800 mg PO Q6H PRN Pain 10/02/22 10/30/22 Unknown History Allergies Allergy/AdvReac Type Severity Reaction Status Date / Time morphine Allergy Unknown Verified 10/20/22 14:58 Current Medications Generic Name Dose Route Start Last Admin Trade Name Freq PRN Reason Stop Dose Admin Alprazolam 0.5 mg 10/30/22 01:31 10/30/22 05:34 Alprazolam 0.5 Mg Tablet PO 11/01/22 01:30 0.5 mg TID PRN Administration ANXIETY Amoxicillin/Clavulanate Potassium 1 tab 10/30/22 01:40 10/30/22 02:29 Amoxicillin-Clav 875-125 Mg Tablet PO 1 tab BID JAYNE Administration Protocol Hydromorphone HCl 1 mg 10/30/22 06:46 10/30/22 06:52 Hydromorphone 1 Mg/Ml Inj 1 Ml IVP 1 mg Q2H PRN Administration SEVERE PAIN PFSH Acute PFSH: Medical History Acute appendicitis Dental abscess Fracture of ankle, lateral malleolus, left, closed HTN (hypertension) Leukocytosis Perforated appendicitis Surgical History H/O: hysterectomy History of laparoscopic cholecystectomy History of nasal surgery Family History Father CAD (coronary artery disease) Hypertension Mother CAD (coronary artery disease) Hypertension Seizures Social History Smoking and tobacco status: current some day smoker Alcohol intake: former Vitals/I&O/Wt Last Vital Signs Temp 99.7 F H 10/30/22 04:00 Pulse 89 10/30/22 04:00 Resp 18 10/30/22 06:52 BP 145/90 10/30/22 04:00 Pulse Ox 97 10/30/22 04:00 O2 Del Method 10/30/22 04:00 10/29/22 10/30/22 10/30/22 22:59 06:59 14:59 Intake Total 500 / 500 Balance 500 / 500 Weight last 48 hrs Weight 200 lb Physical Exam Narrative: BELOW IS A FOCUSED LOWER EXTREMITY EXAM GENERAL: A&O x 3, apparent distress from right ankle pain VASCULAR: Capillary refill time intact, brisk and less than 3 seconds DERMATOLOGICAL: Postreduction splint in place MUSCULOSKELETAL: Deferred secondary to posttraumatic state NEUROLOGICAL: Neurological sensation to the affected foot and ankle is present through L4-S1 dermatomes with no hyper/hypoesthesias, negative Tinel or Valleix's sign Data 10/29/22 22:19 10/29/22 22:19 A&P Assessment and plan (1) Trimalleolar fracture of right ankle: (2) Pain in right ankle: Plan -Patient was seen and evaluated at bedside -Imaging was discussed with patient and the extent of the injury was also discussed with patient -We discussed at length the complications of surgical and nonsurgical treatment. We will continue with surgical treatment -Patient to remain n.p.o. for procedure today 10/30/2022 in the operating room. Patient will undergo right trimalleolar ankle fracture open reduction internal fixation -Focus on pain management -Strict nonweightbearing to right lower extremity. Keep right foot and ankle elevated Consult Attestations Medical Necessity Statement: Requires admission for pain control and surgical repair of right ankle Coding Level of Care Code Acute Code for [facility] Diagnoses Trimalleolar fracture of right ankle S82.851A Pain in right ankle M25.571
--- NOTE | 2022-10-30 10:17 | PC.NURSE ---
patient resting with eyes closed during rounding.
--- NOTE | 2022-10-30 11:10 | PC.NURSE ---
one pair of earrings, two rings, and a necklace placed into a labeled denture cup, and placed on patients bedside table.
[2022-10-30] MEDS: midazolam 1 mg/mL INJ 5 ML 5 MG IVP (11:39)
[2022-10-30] MEDS: fentaNYL 50 mcg/mL INJ 2mL 100 MCG IVP (11:40)
[2022-10-30] MEDS: fentaNYL 50 mcg/mL INJ 2mL IVP (11:50)
[2022-10-30] MEDS: sodium chloride 0.9% 1,000 ML 30 ML IV (11:53)
--- NOTE | 2022-10-30 11:54 | W.PM.OPSUD ---
Surgery/Procedure H&P Update DATE OF PROCEDURE: October 30, 2022 DATE H&P PERFORMED: 10/30/22 CHANGES TO PREVIOUS DOCUMENTATION: ORIF right trimalleolar ankle fracture versus external fixator application right ankle PRIMARY INDICATION FOR PROCEDURE: Right ankle trimalleolar ankle fracture PLANNED PROCEDURE: Operation Date: 10/30/22 12:00 Proposed Procedures p ORIF Ankle ORIF Trimalleolar Fracture(Right) - Fernando Melchor DPM
--- NOTE | 2022-10-30 11:58 | ANES.PREANE2 ---
Pre-Anesthetic Assessment Height/Weight: Height 1.65 m Weight 90.718 kg Temp Pulse Resp BP Pulse Ox O2 Del Method 98.1 F 81 18 163/102 98 10/30/22 11:24 10/30/22 11:24 10/30/22 11:50 10/30/22 11:24 10/30/22 11:50 10/30/22 11:24 Operation Date: 10/30/22 12:00 Proposed Procedures p ORIF Ankle ORIF Trimalleolar Fracture(Right) - Fernando Melchor DPM Familial anesthetic complications: None Was Beta Jann taken within 24 hours: N/A Was Clonidine taken within 24 hours: N/A Last intake: Intake Last Liquid Date 10/29/22 Last Solid Date 10/29/22 Social No alcohol and No tobacco Exam alert, oriented x 3, clear to auscultation bilaterally and regular rate & rhythm Airway Mallampati: Class III Dentition: full CV/HEM Hypertension GI intrabdominal abscess Anesthetic Plan ASA status: 3 Anesthesia: General and Regional (specify below) Risk of > 500 ml blood loss (7ml/kg in children): No Medications/Allergies Home Medications Medication Instructions Recorded Confirmed Last Taken Type Cam Walker #1 ea 10/31/20 10/30/22 Unknown Rx acetaminophen 500 mg tablet 1,000 mg PO Q6H PRN Pain 10/02/22 10/30/22 Unknown History atenolol 50 mg tablet 50 mg PO Q12H 10/02/22 10/30/22 10/29/22 08:00 History guaifenesin 100 mg/5 mL oral liquid 200 mg PO Q4H PRN Congestion 10/02/22 10/30/22 Unknown History ibuprofen 200 mg tablet 400 - 800 mg PO Q6H PRN Pain 10/02/22 10/30/22 Unknown History wheelchair #1 ea 10/30/22 Unknown Rx Allergies Allergy/AdvReac Type Severity Reaction Status Date / Time morphine Allergy Unknown Verified 10/20/22 14:58 Current Medications Generic Name Dose Route Start Last Admin Trade Name Freq PRN Reason Stop Dose Admin Alprazolam 0.5 mg 10/30/22 01:31 10/30/22 05:34 Alprazolam 0.5 Mg Tablet PO 11/01/22 01:30 0.5 mg TID PRN Administration ANXIETY Amoxicillin/Clavulanate Potassium 1 tab 10/30/22 01:40 10/30/22 09:21 Amoxicillin-Clav 875-125 Mg Tablet PO 1 tab BID JAYNE Administration Protocol Fentanyl 50 mcg 10/30/22 11:21 10/30/22 11:50 Fentanyl 50 Mcg/Ml Inj 2ml IVP 50 mcg Q10M PRN Administration Preop Pain Hydromorphone HCl 1 mg 10/30/22 06:46 10/30/22 09:20 Hydromorphone 1 Mg/Ml Inj 1 Ml IVP 1 mg Q2H PRN Administration SEVERE PAIN Sodium Chloride 1,000 mls @ 30 mls/hr 10/30/22 11:30 10/30/22 11:53 Sodium Chloride 0.9% IV 10/31/22 11:29 30 mls/hr .Q24H JAYNE Administration PFSH Anesthesia Medical History Acute appendicitis Dental abscess Fracture of ankle, lateral malleolus, left, closed HTN (hypertension) Leukocytosis Perforated appendicitis Surgical History H/O: hysterectomy History of laparoscopic cholecystectomy History of nasal surgery Family History Father CAD (coronary artery disease) Hypertension Mother CAD (coronary artery disease) Hypertension Seizures Social History Smoking and tobacco status: current some day smoker Alcohol intake: former Data Anesthesia 10/29/22 22:19 10/29/22 22:19 Short CBC 10/29/22 Range/Units 22:19 WBC 8.9 (4.0-10.0) 10^3/uL Hgb 12.6 (11.5-15.3) g/dL Hct 38.9 (37.0-47.0) % MCV 89.8 (81-99) fl Plt Count 340 (130-400) 10^3/cmm Neut % (Auto) 66.2 % Neut # (Auto) 5.89 (1.8-7.7) 10^3/uL BMP 10/29/22 22:19 Sodium 141 Potassium 3.6 Chloride 108 H Carbon Dioxide 24 BUN 9 Creatinine 0.8 Glucose 108 Calcium 8.8 Liver Function 10/29/22 Range/Units 22:19 Total Bilirubin 0.2 (0.15-1.2) mg/dL AST 12 (0-32) U/L ALT 17 (0-33) U/L Alkaline Phosphatase 122 H (35-105) U/L Albumin 3.6 (3.5-5.2) g/dL Coags 10/29/22 22:19 PT 12.40 INR 0.89 Cardiac Studies: No Data to Display
--- NOTE | 2022-10-30 11:59 | ANES.PROC ---
Anesthesia Procedures Procedure/Date: 10/30/22 Nerve Block ^: Nerve Block 1: Main Anesthesia: general anesthesia Time Out Performed: Yes Consent: requested by attending/covering physician, from patient, from other, risks and benefits reviewed and patient agrees to proceed Nerve block location: adductor canal (R) Anesthesia monitors applied: pulse oximetry, EKG, BP cuff and oxygen Nerve block position: supine Anesthetic Used: ropivicaine 0.5% (10 ml) and with decadron (1 mg) Nerve Stimulator Used?: No Interscalene/Femoral BLK: 4 stimuplex 21 g needle used for position and inplane approach, visualize local anesthetic spread and no vascular puncture identified Injection: neg aspiration of heme Patient Tolerated Procedure: well Complications: none and pain with procedure Nerve Block 2: Main Anesthesia: general anesthesia Time Out Performed: Yes Consent: requested by attending/covering physician, from patient, from other, risks and benefits reviewed and patient agrees to proceed Nerve block location: popliteal (R) Anesthesia monitors applied: pulse oximetry, EKG, BP cuff and oxygen Nerve block position: supine Anesthetic Used: ropivicaine 0.5% (20 ml) and with decadron (3 mg) Ultrasound used to: recognize landmarks Nerve Stimulator Used?: No Interscalene/Femoral BLK: 4 stimuplex 21 g needle used for position and inplane approach, visualize local anesthetic spread and no vascular puncture identified Injection: neg aspiration of heme Patient Tolerated Procedure: well Complications: pain with procedure
[2022-10-30] MEDS: ceFAZolin 2,000 MG in sodium chloride 0.9% (plus) 50 ML 100 MG IV (12:21)
--- NOTE | 2022-10-30 13:40 | XR_ITS ---
WS: [id number] EXAMINATION: XR ankle RT min 3V* [id number] REASON FOR EXAM: Post op COMPARISON: 10/29/2022 ORDER DATE: 10/30/2022 1:54 PM TECHNIQUE: 3 views of the right ankle were obtained. X-RAY FINDINGS: There is very comminuted fracture change involving the distal fibula with many fragments with similar fracture of the medial malleolus and a intra-articular fracture through the posterior malleolus. Alvarado otibial articulation unremarkable. Traction device noted at the level of the foot XR/XR ankle RT min 3V* [id number] IMPRESSION: Acute comminuted displaced trimalleolar fractures as noted above.
--- NOTE | 2022-10-30 13:52 | PM.OP ---
Operative Report Date of procedure: October 30, 2022 Pre-op diagnosis: Right trimalleolar ankle fracture Post-op diagnosis: Same Post-op findings: Early fracture blister formation on lateral aspect of right ankle with significant edema circumferentially around right ankle with ecchymoses to medial malleoli region. Soft tissue not conducive to open reduction internal fixation at this time Procedure done: Right ankle external fixator application multiplanar CPT 86399 Implants: Triplanar external fixator pins and bars from [employer] Surgeon: Dr. Fernando Melchor, D.P.MZahraa Estimated blood loss: 10 cc Complications: None Findings: See above Brief History: Patient is a 47-year-old female who sustained a trimalleolar ankle fracture to the right ankle on 10/29/2022 when she was walking down an uneven hill and lost her balance and tripped and fell twisting her ankle. She was brought to the emergency department via EMS where she was found have a trimalleolar ankle fracture. She was admitted to the hospital after closed reduction due to pain management. It was decided that the extent of the injury required surgical intervention. A discussion was had with the patient and patient's regarding her injury and the treatment options available. We discussed that surgical intervention was in the patient's best interest. We discussed open reduction internal fixation versus external fixation depending on soft tissue envelope. A discussion regarding the procedure, including risks and complications has been had with the patient. Written and verbal consent have been obtained. All patient questions have been answered to the patient's satisfaction. No written or verbal guarantees have been given or implied. Procedure: The patient has been NPO since midnight. The history has been reviewed and the history and physical is current. The signed consent was confirmed and placed in the patient chart. Patient imaging has been reviewed and is consistent with the diagnosis. Under mild sedation, the patient was brought into the operating room and placed on the table in the supine position. IV antibiotics were given by the anesthesia team as preoperative surgical prophylaxis. General sedation was then performed by the anesthesia team. A pneumatic tourniquet was then placed about the right thigh. The operative extremity was then prepped and draped in the usual fashion. The the tourniquet was not inflated. After preparation, the following procedure was then performed. Attention was directed to the right ankle where there was noted to be early fracture blister formation along the lateral aspect of the right ankle about the lateral malleolus. There was also noted to be significant posttraumatic edema circumferentially about the ankle with ecchymoses to the medial malleolar region. Given these findings it was determined that external fixation was the patient's best option given the soft tissue envelope. A #15 blade was used to make 2 small stab incisions over the anteromedial surface of the tibia. Mosquito hemostat was used to bluntly dissect down to the level of bone. Next, 2 tibial half pins were driven into the anterior medial tibia from anterior to posterior. Next, a transfixation pin was driven in the perpendicular plane to the tibial half pins from lateral to medial through the calcaneus. This was done after a small stab incision was made on the lateral and medial aspect of the calcaneus. Blunt dissection was carried down to the level of the lateral wall of the calcaneus before the transfixing pin was driven from lateral to medial until it was appropriately positioned in the body of the calcaneus. This was visualized on calcaneal axial view. Next, a assistant spa manager was attached to the tibial half pins. Under direct visualization of C-arm fluoroscopy the right ankle fracture was manually reduced to a more satisfactory anatomical alignment. There was noted to be in anterior fragment that was interpositional in the fibula this was noted to be sitting in a more vertical positioning however, still appearing to be wedged within the medullary canal. This will be further addressed when the patient returns to the operating room for open reduction internal fixation after the soft tissue envelope calms down. With the ankle reduced to a satisfactory position, the assistant spa manager was then fixated to a carbon fiber bar measuring 400 mm that was then fixated to the transaxial pin of the calcaneus. This was performed on both the medial and lateral aspect of the right lower extremity in standard delta frame fashion. Good positioning and alignment of the fracture fragments was visualized on C-arm imaging as well as clinically. Attention was then directed to the dorsomedial aspect of the first metatarsal. A #15 blade was used to make a small stab incision over the midshaft. Blunt dissection was carried down to the level of bone. A half pin was then driven into the dorsal medial aspect of the first metatarsal to provide stable triplanar fixation about the right ankle. This was done to prevent further coronal plane movement of the fracture sites. The half pin of the first metatarsal was then fixated to the delta frame via carbon fiber bar measuring 200 mm. Good positioning of the pins and multiplanar fixator was visualized on C-arm imaging. Next, the frame was tightened down appropriately and was noted to be a solid fixation. The pin sites were dressed with Xeroform, 4 x 4 gauze, Kerlix before the leg was wrapped in 4 inch Ryan bandage. The patient tolerated the procedure and anesthesia well and without complication. The patient was transported from the operating room to the recovery room with vital signs stable and vascular status intact to all digits of the right foot. The patient was instructed to remain non-weightbearing to the operative extremity, to keep surgical dressing clean, dry and intact. The patient will be transferred back to the floor once anesthesia criteria is met. I will continue to round on and follow the patient in the inpatient setting and provide recommendations to stabilize the patient for discharge. If pain is well managed patient will be okay to discharge from podiatry standpoint with close follow-up for definitive surgical planning.
--- NOTE | 2022-10-30 13:53 | ANE.PACU2 ---
Inpatient post-anesthesia follow up: Airway intact: Yes Vital signs: Temperature 97.0 F Pulse Rate 94 Respiratory Rate 13 Blood Pressure 131/95 Pulse Oximetry 92 Oxygen Delivery Me thod Room Air Oxygen Flow Rate Fraction of Inspir ed Oxygen Hydration adequate: Yes Nausea and vomiting: No Pain level: 1 Mental status: Baseline
--- NOTE | 2022-10-30 19:13 | PM.MISC ---
Miscellaneous Note Purpose of Documentation: Overnight labs and H&P reviewed. patient is s/p right ankle external fixator application multiplanar today. Tolerated procedure today. c/o post op pain for which pain mgmt will be optimized
[2022-10-30] MEDS: atenolol 50 mg Tablet PO (20:24)
[2022-10-30] MEDS: oxyCODONE-APAP 5-325 mg Tablet 1 TAB PO (23:51)
[2022-10-31] VITALS (8 sets, daily range): BP systolic 115–125; BP diastolic 72–82; PULSE 66–72; RESP 14–18; TEMP 36.5–36.9; O2SAT 99–100
[2022-10-31] MEDS: HYDROmorphone 1 mg/mL INJ 1 mL IVP ×2 (04:32→10:28)
[2022-10-31 07:06] LABS: Basophils % 0.1 %; Hematocrit 36.5 % (37.0-47.0); Hemoglobin 11.7 g/dL (11.5-15.3); Lymphocytes # 1.5 10^3/uL (0.8-4.8); Lymphocytes % 13.2 %; Mean Corpuscular HGB Conc 32.1 g/dL (30.0-36.0); Mean Corpuscular Hemoglobin 29.7 pg (28.0-34.0); Mean Corpuscular Volume 92.6 fl (81-99); Mean Platelet Volume 10.8 fL (7.4-10.4); Monocytes # 0.6 10^3/uL (0.2-0.9); Monocytes % 5.2 %; Neutrophils # 9.25 10^3/uL (1.8-7.7); Neutrophils % 80.9 %; Nucleated Red Blood Cells % 0 %; Platelet Count 341 10^3/cmm (130-400); Red Blood Count 3.94 10^6/uL (4.1-5.3); White Blood Count 11.4 10^3/uL (4.0-10.0)
[2022-10-31 07:23] LABS: Alanine Aminotransferase 16 U/L (0-33); Albumin Level 3.2 g/dL (3.5-5.2); Alkaline Phosphatase 121 U/L (35-105); Anion Gap 13.7 (5-19); Aspartate Amino Transferase 11 U/L (0-32); Blood Urea Nitrogen 9 mg/dL (6-20); Calcium 8.9 mg/dL (8.5-10.5); Carbon Dioxide 22 mmol/L (22-29); Chloride 104 mmol/L (98-107); Globulin 2.9 g/dL (1.3-4.6); Glomerular Filtration Rate 90.5 mL/min (90-130); Glucose 162 mg/dL (65-115); Osmolality Calculated 284 mOsm/kg (285-295); Potassium 3.7 mmol/L (3.5-5.1); Sodium 136 mmol/L (136-145); Total Bilirubin 0.2 mg/dL (0.15-1.2); Total Protein 6.1 g/dL (6.6-8.7)
--- NOTE | 2022-10-31 08:13 | PM.PN ---
Subjective Subjective: Patient seen at bedside this morning. She is status post right trimalleolar ankle fracture external fixation application (10/30/2022). Patient states that she is doing much better today in comparison to yesterday. She does complain of generalized anxiety due to personal issues in her life at this time in combination with her recent appendicitis and now ankle fracture. She states that her pain is improved but still present. She feels that the oxycodone 5 just is not quite enough. She denies any other overnight events. She is asking for bedside commode for at home as she will not be able to make it to the bathroom given her nonweightbearing status. Vitals/I&O/Wt Last Vital Signs Temp 98.0 F 10/31/22 04:00 Pulse 71 10/31/22 04:00 Resp 18 10/31/22 04:32 BP 125/79 10/31/22 04:00 Pulse Ox 99 10/31/22 04:00 O2 Del Method 10/31/22 04:00 10/30/22 10/31/22 10/31/22 22:59 06:59 14:59 Intake Total 1113 / 1873 840 / 2713 Output Total 1999 Balance 1113 / 1863 -1160 / 703 Weight last 48 hrs Weight 200 lb Physical Exam Narrative: BELOW IS A FOCUSED LOWER EXTREMITY EXAM GENERAL: A&O x 3 VASCULAR: Capillary refill intact to distal digits of right foot. DERMATOLOGICAL: Postsurgical dressing intact to right ankle with no strikethrough. Delta frame applied to right lower extremity MUSCULOSKELETAL: Deferred secondary to postoperative state NEUROLOGICAL: Neurological sensation to the affected foot and ankle is present through L4-S1 dermatomes with no hyper/hypoesthesias, negative Tinel or Valleix's sign Data 10/31/22 06:20 10/31/22 06:20 A&P Assessment and plan (1) Trimalleolar fracture of right ankle: (2) Pain in right ankle: Plan -Right trimalleolar ankle fracture status post external fixation (10/30/2022) -Labs and vitals reviewed -Pain is improving -Diet: Okay for diet -No further surgical intervention during this admission -Weightbearing: Strict nonweightbearing to right lower extremity using wheelchair, crutches -Order placed for bedside commode at home as well as crutches as patient will need this due to her inability to get to the bathroom at home using wheelchair -Pain management: I recommend oxycodone 10?325 upon discharge with ibuprofen 800 mg in between doses for pain control -I will discuss with Dr. Soto about anxiolytic for patient -Patient will follow-up with me (Dr. Melchor) next week. Appointment card given to patient. My office will also contact the patient to remind her of her appointment time -Okay to discharge home from podiatry standpoint on appropriate pain medication Attestations Medical Necessity Statement*: Right trimalleolar ankle fracture that underwent external fixation Coding Level of Care Code Acute Code for [facility] Fwd Diagnoses Trimalleolar fracture of right ankle S82.851A Pain in right ankle M25.571
[2022-10-31] MEDS: oxyCODONE-APAP 5-325 mg Tablet 1 TAB PO ×2 (08:35→12:57)
[2022-10-31] MEDS: amoxicillin-clav 875-125 mg Tablet 1 TAB PO (10:29)
[2022-10-31] MEDS: atenolol 50 mg Tablet PO (10:29)
[2022-10-31] MEDS: ALPRAZolam 0.5 mg Tablet PO (10:29)
--- NOTE | 2022-10-31 10:56 | PM.DCS ---
Discharge Providers Date of Admission: 10/29/22 23:00 Date of Discharge: October 31, 2022 Attending Provider at Admission: Esteban Cage Attending Provider at Discharge: Gabriela Soto MD Diagnoses at Discharge Discharge Diagnosis (1) Trimalleolar fracture of right ankle: Status: Acute (2) Pain in right ankle: Status: Acute Reason for Visit Reason for Visit: ANKLE PAIN Hospital Course Hospital Course 47-year-old lady recently hospitalized for acute appendicitis with periappendiceal abscess, underwent IR drainage, is still on antibiotics currently on Augmentin, is post to be following up with surgery for definitive treatment with appendectomy on 30 November Presented to ER after slipping on some gravel while walking downhill, falling down with pain and deformity of the right ankle with finding of right ankle fracture.She states she otherwise has been doing better, has been eating regular food.? Denies any exertional limitations, not short of breath, no chest pain. She underwent Right ankle external fixator application multiplanar. Soft tissue not conducive to open reduction internal fixation at this time. Order placed by podiatry for bedside commode at home as well as crutches as patient will need this due to her inability to get to the bathroom at home using wheelchair. Oxycodone 10?325 upon discharge with ibuprofen 800 mg in between doses for pain control. She will follow up with podiatry in one week. Physical Exam Narrative: General: No acute distress, AO x3 HEENT: PERRLA, pupils bilaterally equal and reactive, pallors not present Chest: Normal vesicular breath sounds, no added sounds, equal good air entry bilaterally CVS: S1-S2 regular, no murmurs, no tachycardia, no gallops, no rubs Abdomen: Soft, nontender, no organomegaly, bowel sounds present Neuro: No focal deficits, no facial deformity, AO x3, power 5/5 in all limbs Discharge Data Studies Completed and Pending Completed Studies During Hospitalization Category Date Time Status CT ankle RT wo con* [id number] Stat Cat Scan 10/29/22 22:59 Completed XR ankle RT 2V [id number] Stat Exams 10/29/22 22:45 Completed XR ankle RT min 3V* [id number] Routine Exams 10/30/22 13:40 Completed XR ankle RT min 3V* [id number] Stat Exams 10/29/22 21:31 Completed Pending at discharge Category Date Time Status C-arm Fluoroscopy [id number] Routine Exams 10/30/22 10:37 Taken Complete Blood Count w/Auto AM LABS Lab 11/01/22 04:00 Ordered Complete Blood Count w/Auto AM LABS Lab 11/02/22 04:00 Ordered Comprehensive Metabolic Panel AM LABS Lab 11/01/22 04:00 Ordered Comprehensive Metabolic Panel AM LABS Lab 11/02/22 04:00 Ordered Radiology Impressions Ankle CT 10/29/22 22:59 IMPRESSION: 1. Distal fibular comminuted somewhat displaced fracture with improved alignment compared to prior exam 2. Medial malleolar horizontal minimally displaced fracture. 3. Distal tibia demonstrates mild medial displacement relative to the talus by approximately 4.8 mm. 4. Posterior malleolar vertically oriented mildly displaced comminuted fracture with articular involvement at the tibiotalar joint. 5. Small calcified heel spur. 6. Distal Achilles tendon degenerative calcification. 7. Subcutaneous edema about the foot and ankle. Ankle X-Ray 10/30/22 13:40 IMPRESSION: Acute comminuted displaced trimalleolar fractures as noted above. Laboratory Results WBC 11.4 10^3/uL (4.0-10.0) H 10/31/22 06:20 RBC 3.94 10^6/uL (4.1-5.3) L 10/31/22 06:20 Hgb 11.7 g/dL (11.5-15.3) 10/31/22 06:20 Hct 36.5 % (37.0-47.0) L 10/31/22 06:20 MCV 92.6 fl (81-99) 10/31/22 06:20 MCH 29.7 pg (28.0-34.0) 10/31/22 06:20 MCHC 32.1 g/dL (30.0-36.0) 10/31/22 06:20 RDW 13.0 % (12.1-15.1) 10/31/22 06:20 Plt Count 341 10^3/cmm (130-400) 10/31/22 06:20 MPV 10.8 fL (7.4-10.4) H 10/31/22 06:20 Neut % (Auto) 80.9 % 10/31/22 06:20 Lymph % (Auto) 13.2 % 10/31/22 06:20 [place] % (Auto) 5.2 % 10/31/22 06:20 Eos % (Auto) 0.0 % 10/31/22 06:20 Baso % (Auto) 0.1 % 10/31/22 06:20 Neut # (Auto) 9.25 10^3/uL (1.8-7.7) H 10/31/22 06:20 Lymph # (Auto) 1.5 10^3/uL (0.8-4.8) 10/31/22 06:20 [place] # (Auto) 0.6 10^3/uL (0.2-0.9) 10/31/22 06:20 Eos # (Auto) 0.0 10^3/uL (0.0-0.8) 10/31/22 06:20 Baso # (Auto) 0.0 10^3/uL (0.0-0.1) 10/31/22 06:20 Nucleated RBC % (auto) 0 % 10/31/22 06:20 Nucleated RBCs # 0.0 /100WBC 10/31/22 06:20 PT 12.40 SECONDS (12.1-14.9) 10/29/22 22:19 INR 0.89 (0.8-1.2) 10/29/22 22:19 Sodium 136 mmol/L (136-145) 10/31/22 06:20 Potassium 3.7 mmol/L (3.5-5.1) 10/31/22 06:20 Chloride 104 mmol/L (98-107) 10/31/22 06:20 Carbon Dioxide 22 mmol/L (22-29) 10/31/22 06:20 Anion Gap 13.7 (5-19) 10/31/22 06:20 BUN 9 mg/dL (6-20) 10/31/22 06:20 Creatinine 0.7 mg/dL (0.5-0.9) 10/31/22 06:20 GFR Calculation 90.5 mL/min (90-130) 10/31/22 06:20 Glucose 162 mg/dL (65-115) H 10/31/22 06:20 Calculated Osmolality 284 mOsm/kg (285-295) L 10/31/22 06:20 Calcium 8.9 mg/dL (8.5-10.5) 10/31/22 06:20 Total Bilirubin 0.2 mg/dL (0.15-1.2) 10/31/22 06:20 AST 11 U/L (0-32) 10/31/22 06:20 ALT 16 U/L (0-33) 10/31/22 06:20 Alkaline Phosphatase 121 U/L (35-105) H 10/31/22 06:20 Total Protein 6.1 g/dL (6.6-8.7) L 10/31/22 06:20 Albumin 3.2 g/dL (3.5-5.2) L 10/31/22 06:20 Globulin 2.9 g/dL (1.3-4.6) 10/31/22 06:20 HCG, Qual Negative (Negative) 10/29/22 22:19 Vitals Last Vital Signs Temp 97.7 F 10/31/22 08:00 Pulse 72 10/31/22 08:00 Resp 18 10/31/22 10:28 BP 124/82 10/31/22 08:00 Pulse Ox 99 10/31/22 08:35 O2 Del Method 10/31/22 08:00 Discharge Plan Discharge Patient Disposition: Home Condition: Stable Prescriptions: New alprazolam 0.5 mg Tablet 0.5 mg PO TID PRN (Reason: Anxiety) 5 Days Qty: 15 0RF amoxicillin-pot clavulanate 875-125 mg Tablet 1 tab PO BID Qty: 0 0RF oxycodone-acetaminophen 10-325 mg tablet 1 tab PO Q6H PRN (Reason: pain) Qty: 28 0RF ibuprofen 800 mg tablet 800 mg PO Q6H PRN (Reason: pain) Qty: 28 0RF cephalexin 500 mg capsule 500 mg PO TID 7 Days Qty: 21 0RF Continued (DME) Cam Walker See Rx Instructions .ROUTE .MEDSUPPLY Qty: 1 0RF Rx Instructions: As directed (DME) wheelchair See Rx Instructions .Route .MEDSUPPLY Qty: 1 0RF Rx Instructions: As directed to HOME acetaminophen 500 mg Tablet 1,000 mg PO Q6H PRN (Reason: Pain) guaifenesin 100 mg/5 mL Liquid 200 mg PO Q4H PRN (Reason: Congestion) ibuprofen 200 mg Tablet 400 - 800 mg PO Q6H PRN (Reason: Pain) atenolol 50 mg tablet 50 mg PO Q12H Discharge Orders: Discharge Order (Routine); Ordered 10/31/22 Ordered By: Gabriela Soto Other Ambulatory Orders: DME: Cane/ Crutches (Order) Location: None Selected Ordered By: Fernnado Melchor DME: [employer] (Order) Location: None Selected Ordered By: Fernando Melchor Referrals: [facility] [place]] Fernando Melchor DPM [Physician] - 1 week (Sent message to clinic. Will call Wednesday with appointment.) Sharif Riddle FNP [Nurse Practitioner] - (Sent message to clinic. Call Wednesday with appointment information.) Discharge Diet: Usual diet Discharge Activity: Resume usual activity Patient Instructions: Cephalexin (By mouth), Ibuprofen (By mouth), Oxycodone/Acetaminophen (By mouth), Alprazolam (By mouth), Ankle Fracture (DC), External Fixation Device for an Adult (DC), Opioid Safety Discharge Attestations Time Spent in Discharge Care*: greater than 30 min Quality Metrics Clinical Quality Measures [ No reported AMI, CVA or VTE this stay] Coding Level of Care Code Acute Code for [facility] Fwd Diagnoses Trimalleolar fracture of right ankle S82.851A Pain in right ankle M25.571
== END 2022-10-31 13:10 | disposition home or self-care (01) | DRG 494 ==
LOC: ER 23:25 → MEDSURG 23:29
PROVIDERS: Podiatrist Foot & Ankle Surgery; Admitting Provider Internal Medicine; Emergency Provider Emergency Medicine; Visit Provider Student in an Organized Health Care Education/Training Program
PROC: 0QHG35Z Insertion of External Fixation Device into Right Tibia, Percutaneous Approach (ICD-10-PCS; principal; 2022-10-30 12:00)
DX: S82.851A Displaced trimalleolar fracture of right lower leg, initial encounter for closed fracture (principal); W01.0XXA Fall on same level from slipping, tripping and stumbling without subsequent striking against object, initial encounter; I10 Essential (primary) hypertension; F17.200 Nicotine dependence, unspecified, uncomplicated
CPT/HCPCS: 36415; 73600; 73610; 73700; 76000; 80053; 84703; 85025; 85610; 96374; 96375; 99285; C1713; J0690; J1100; J1170; J2060; J2250; J2405; J2704; J2795; J3010; J7030

== ENCOUNTER 2022-11-01 14:08 | Emergency (ER) | payer MEDICAID, SELFPAY ==
[2022-11-01 14:22] VITALS: BP 143/96; PULSE 80; TEMP 36.4; O2SAT 99; BMI 34.3
--- NOTE | 2022-11-01 14:58 | W.ED.GENADLT ---
HPI - General Adult General: Chief complaint: General Medical Stated complaint: bleeding post surgery Time Seen by Provider: 11/01/22 14:50 History of Present Illness: Four 7-year-old female with anxiety and depression and recently sustained trimalar fracture of the right ankle presenting with strikethrough bleeding of her bandage over her heel external fixation device. Patient states that she was told to come to the emergency department if there is any bleeding of the ankle and she was following instructions. Forgot to take her morning pain meds and her pain currently is excruciating. She takes 10 mg oxycodone at home scheduled throughout the day for her pain. Denies fevers, sweats, chills, diminished sensation or inability to move her toes. She states that the coloration of her foot is at baseline. PFS ED PFSH: Medical History Acute appendicitis Dental abscess Fracture of ankle, lateral malleolus, left, closed HTN (hypertension) Leukocytosis Perforated appendicitis Surgical History H/O: hysterectomy History of laparoscopic cholecystectomy History of nasal surgery Family History Father CAD (coronary artery disease) Hypertension Mother CAD (coronary artery disease) Hypertension Seizures Social History Smoking and tobacco status: current some day smoker Alcohol intake: former Physical Exam Narrative: EXAM NARRATIVE: Fact extremity demonstrates intact cap refill less than 2 seconds in all visible 5 toes, ability to wiggle all toes and intact sensation at all toes. Examination of the external fixation device demonstrates that he will horizontal fixation munira with bleeding around the calcaneus at the site of the bandage without bleeding through the bandage onto the gurney. Area appears hemostatic with dried blood over the dressing. No tracking erythema or induration. Const: COMMON NORMALS: no acute distress HENMT: COMMON NORMALS: normocephalic and atraumatic HEAD & SCALP: normocephalic and atraumatic Eye: COMMON NORMALS: Equal, round and reactive pupils present and EOMs intact bilaterally PUPIL: Yes Equal, round and reactive pupils present Neck/C-Spine: COMMON NORMALS: full ROM and no lymphadenopathy Course Vital Signs: Vital signs: Vital Signs Temperature 97.5 F L 11/01/22 14:22 Pulse Rate 74 11/01/22 15:01 Respiratory Rate 20 H 11/01/22 15:00 Blood Pressure 134/94 11/01/22 15:01 Pulse Oximetry 100 11/01/22 15:01 Oxygen Delivery Me thod 11/01/22 15:01 MDM - General Adult Medical Decision Making 47-year-old female with strikethrough bleeding of right calcaneal Ex-Fix munira. Vitals nonactionable. Examination not suggesting acute infection, neurologic deficit, continued bleeding. Differential includes neurovascular injury, postoperative infection, risk of continued hemorrhage, infection wrist, others. Spoke to performing surgeon, podiatry, Dr. Adamson who recommends bolstering dressing and follow-up as previously scheduled. Dr. Adamson states bleeding at this site is common and given neurovascularly intact can proceed to regular follow-up. I provided 10 mg oxycodone and patient will be driven home by daughter who is present with her in the room. Social determinants of health include rolled medicine and education. Discharge Plan Discharge Patient Disposition: Home Clinical Impression: Pain in right ankle Condition: Stable Prescriptions: No Action (DME) Cam Walker See Rx Instructions .ROUTE .MEDSUPPLY Qty: 1 0RF Rx Instructions: As directed (DME) wheelchair See Rx Instructions .Route .MEDSUPPLY Qty: 1 0RF Rx Instructions: As directed to HOME acetaminophen 500 mg Tablet 1,000 mg PO Q6H PRN (Reason: Pain) guaifenesin 100 mg/5 mL Liquid 200 mg PO Q4H PRN (Reason: Congestion) ibuprofen 200 mg Tablet 400 - 800 mg PO Q6H PRN (Reason: Pain) atenolol 50 mg tablet 50 mg PO Q12H alprazolam 0.5 mg Tablet 0.5 mg PO TID PRN (Reason: Anxiety) 5 Days Qty: 15 0RF amoxicillin-pot clavulanate 875-125 mg Tablet 1 tab PO BID Qty: 0 0RF oxycodone-acetaminophen 10-325 mg tablet 1 tab PO Q6H PRN (Reason: pain) Qty: 28 0RF ibuprofen 800 mg tablet 800 mg PO Q6H PRN (Reason: pain) Qty: 28 0RF cephalexin 500 mg capsule 500 mg PO TID 7 Days Qty: 21 0RF Discharge Orders: Discharge ED (Routine); Ordered 11/01/22 Ordered By: Roger Mendez Referrals: Sharif Riddle FNP [Primary Care Provider] - Discharge Diet: Advance as tolerated Discharge Activity: Limit activity as instructed Patient Instructions: Opioid Safety, Pain Management Coding Level of Care Code ED Ballistics Expert for Andi Velasquez
[2022-11-01 15:00] VITALS: RESP 20
[2022-11-01] MEDS: oxyCODONE 5 mg IR Tab/Cap 10 MG PO (15:00)
[2022-11-01 15:01] VITALS: BP 134/94; PULSE 74; O2SAT 100
[2022-11-01 15:15] VITALS: PULSE 78; O2SAT 98
== END 2022-11-01 15:16 | disposition home or self-care (01) ==
PROVIDERS: Emergency Provider General Practice; PCP Nurse Practitioner Family
DX: M25.571 Pain in right ankle and joints of right foot (principal); I10 Essential (primary) hypertension; F17.210 Nicotine dependence, cigarettes, uncomplicated
CPT/HCPCS: 99283

== ENCOUNTER 2022-11-13 05:28 | Day surgery (SDC) | payer MEDICAID, SELFPAY ==
[2022-11-12 14:10] VITALS: BMI 38.9
[2022-11-13] VITALS (7 sets, daily range): BP systolic 115–150; BP diastolic 65–95; PULSE 70–80; RESP 14–16; TEMP 36.1–36.6; O2SAT 97–100
[2022-11-13] MEDS: sodium chloride 0.9% 1,000 ML 30 ML IV (06:16)
[2022-11-13] MEDS: acetaminophen 1,000 MG/100 ML PIGGYBACK 400 MG IV (06:17)
[2022-11-13] MEDS: gabapentin 300 mg Capsule PO (06:17)
--- NOTE | 2022-11-13 06:38 | W.PM.OPSUD ---
Surgery/Procedure H&P Update DATE OF PROCEDURE: November 13, 2022 DATE H&P PERFORMED: 11/05/22 CHANGES TO PREVIOUS DOCUMENTATION: No changes PREOP DIAGNOSIS: Right trimalleolar ankle fracture PLANNED PROCEDURE: Operation Date: 11/13/22 07:00 Proposed Procedures p ?Open reduction internal fixation right trimalleolar fracture CPT 67072 and Removal of external fixator right ankle under anesthesia CPT 95039,S82.851A(Right) - Fernando Melchor DPM s Removal of external fixator right ankle under anesthesia CPT 11799(Right) - Fernando Melchor DPM
--- NOTE | 2022-11-13 06:39 | P.ANESASSM_ITS ---
Pre-Anesthetic Assessment Height/Weight: Height 1.63 m Weight 102.965 kg Temp Pulse Resp BP Pulse Ox O2 Del Method 96.9 F L 71 16 150/95 98 11/13/22 06:05 11/13/22 06:05 11/13/22 06:05 11/13/22 06:05 11/13/22 06:05 11/13/22 06:05 Preop Diagnosis: Right trimalleolar ankle fracture Operation Date: 11/13/22 07:00 Proposed Procedures p ?Open reduction internal fixation right trimalleolar fracture CPT 03342 and Removal of external fixator right ankle under anesthesia CPT 32852,S82.851A(Right) - Fernando Melchor DPM s Removal of external fixator right ankle under anesthesia CPT 87602(Right) - Fernando Melchor DPM Last intake: Intake Last Liquid Date 11/12/22 Last Liquid Time 23:00 Last Solid Date 11/12/22 Last Solid Time 23:00 Exam alert, oriented x 3, clear to auscultation bilaterally and regular rate & rhythm Airway Submandibular: within normal limits Mallampati: Class II Dentition: chipped Pulmonary Cough CV/HEM Hypertension None reported GI None reported Neuropsych Anxiety Anesthetic Plan ASA status: 2 Anesthesia: MAC Medications/Allergies Home Medications Medication Instructions Recorded Confirmed Last Taken Type Cam Walker #1 ea 10/31/20 11/13/22 Unknown Rx acetaminophen 500 mg tablet 1,000 mg PO Q6H PRN Pain 10/02/22 11/12/22 Unknown History guaifenesin 100 mg/5 mL oral liquid 200 mg PO Q4H PRN Congestion 10/02/22 11/12/22 11/12/22 History wheelchair #1 ea 10/30/22 11/13/22 Unknown Rx ibuprofen 800 mg tablet 800 mg PO Q6H PRN pain #28 tabs 10/31/22 11/12/22 11/12/22 Rx atenolol 50 mg tablet 50 mg PO BID #60 tabs 11/06/22 11/12/22 11/12/22 Rx hydroxyzine HCl 25 mg tablet 25 mg PO TID PRN anxiety attacks 11/06/22 11/12/22 11/12/22 Rx #60 tabs oxycodone-acetaminophen 10 mg-325 1 tab PO Q6H PRN pain 7 days #28 11/12/22 11/12/22 11/12/22 Rx mg tablet tabs Allergies Allergy/AdvReac Type Severity Reaction Status Date / Time morphine Allergy Unknown Verified 11/12/22 14:03 [facility] Anesthesia Medical History (Updated 11/09/22 @ 10:02 by Fernando Melchor DPM) Acute appendicitis Ankle fracture Dental abscess Fracture of ankle, lateral malleolus, left, closed HTN (hypertension) Leukocytosis Pain in right ankle Perforated appendicitis Perforated appendicitis Surgical History H/O: hysterectomy History of laparoscopic cholecystectomy History of nasal surgery Family History Father CAD (coronary artery disease) Hypertension Mother CAD (coronary artery disease) Hypertension Seizures Social History Smoking and tobacco status: current some day smoker Alcohol intake: former Data Anesthesia Cardiac Studies: No Data to Display
[2022-11-13] MEDS: ceFAZolin 2,000 MG in sodium chloride 0.9% (plus) 50 ML 100 MG IV (06:58)
--- NOTE | 2022-11-13 10:08 | XR_ITS ---
WS: [id number] XR ankle RT min 3V* [id number] REASON FOR EXAM: Post op FINDINGS: Previous trimalleolar fracture/dislocation of the right ankle. Fixation of medial malleolar fracture with long screws. Plate and screw fixation of comminuted spiral fracture of the distal fibula. Plate and screw fixation of posterior malleolar fracture. Surgical appliances are in proper position and alignment and intact. Fracture fragments are in proper position and alignment. The ankle mortise has been restored. The fracture sites and fixation devices are unchanged compared to the intraoperative examination of milton ruvalcaba today. XR/XR ankle RT min 3V* [id number] IMPRESSION: Stable complex ankle fracture/dislocation with fixation as above.
[2022-11-13] MEDS: oxyCODONE-APAP 10-325 mg Tablet 1 TAB PO (10:35)
--- NOTE | 2022-11-13 10:48 | ANE.PACU2 ---
Inpatient post-anesthesia follow up: Vital signs: Temperature 97.8 F Pulse Rate 75 Respiratory Rate 16 Blood Pressure 131/73 Pulse Oximetry 98 Oxygen Delivery Me thod Room Air Oxygen Flow Rate 6 Fraction of Inspir ed Oxygen Hydration adequate: Yes Nausea and vomiting: No Pain level: 2 Mental status: Baseline
--- NOTE | 2022-11-13 19:30 | PM.OP ---
Operative Report Date of procedure: November 13, 2022 Pre-op diagnosis: Preop Diagnosis Right trimalleolar ankle fracture Post-op diagnosis: Same Post-op findings: Displaced trimalleolar ankle fracture of right ankle Procedure done: 1. Open reduction internal fixation right trimalleolar ankle fracture with fixation of posterior lip CPT 58328 2. Removal of external fixator under general anesthesia CPT 64342 Specimens removed/disposition: Y-plate, straight plate, 3.5 locking and nonlocking screws as well as 4 oh cannulated screws all from [place] Surgeon: Dr. Fernando Melchor, D.P.M. Estimated blood loss: Less than 10 cc Complications: None Findings: See above Procedure: Patient is a 47-year-old female that has a history of right trimalleolar ankle fracture, displaced. The patient underwent closed reduction and application of external fixator. She returns to the operating room today for removal of external fixator and open reduction internal fixation of right trimalleolar ankle fracture. A lengthy discussion regarding the procedure, including risks and complications has been had with the patient and is noted in the recent clinic note. Written and verbal consent have been obtained. All patient questions have been answered to the patient?s satisfaction. No written or verbal guarantees have been given or implied. The patient has been NPO since midnight. The history has been reviewed and the history and physical is current. The signed consent was confirmed and placed in the patient chart. Patient imaging has been reviewed and is consistent with the diagnosis. Under mild sedation, the patient was brought into the operating room and placed on the table in the prone position. IV antibiotics were given by the anesthesia team as preoperative surgical prophylaxis. General sedation was then performed by the anesthesiateam. A popliteal block was performed by the anesthesia department in the preop area. A pneumatic tourniquet was then placed about the right thigh. The delta frame multiplanar external fixator was disassembled before prep with pins left intact. The transfixing pins were then prepped with Betadine before they were removed sterilely. The operative extremity was then prepped and draped in the usual fashion. The extremity was then elevated and exsanguinated before the tourniquet was inflated to 325 mmHg. After inflation, the following procedure was then performed. Attention was directed to the posterior aspect of the right ankle where a 15 cm incision was made in between the interval of the posterior fibula and the Achilles tendon. Blunt dissection was carried down through subcutaneous and superficial fascia. The sural nerve was identified and retracted out of the operative field. Blunt dissection was carried down to the level of deep fascia which was incised to reveal the peroneal tendons. These were retracted laterally. The fascia overlying the FHL was then visualized and incised. The FHL was removed from the fibula and retracted medially. Blunt dissection was carried over medially with care to preserve vital neurovascular structures. The posterior malleolus fragment was then visualized. Combination of dental pick and curette was used to remove the hematoma formation. The posterior malleolus fragment was then reduced and temporarily fixated before a white plate was applied in buttress fashion to fixate the posterior malleolar fragment. Good position of the plate and screws was noted on C-arm imaging as well as clinically. Attention was then directed to the posterior aspect of the fibula. The peroneal tendons were retracted medially and the fracture fragment of the fibula was visualized. Hematoma was cleared using rongeur, curette. The fracture was reduced and a 8 hole straight plate was placed in posterolateral fashion. It was then drilled and filled. Good positioning of the plate and screws were confirmed on C-arm imaging. Site was then irrigated with copious amounts of sterile saline before attention was directed to closure. Deep tissue was closed with 2-0 Vicryl followed by subcuticular closure with 3-0 Vicryl and finally skin closure with skin anderson. The tourniquet was let down and good hyperemic response was noted to all digits of the right foot. The patient was then transferred to the [facility] and then back to the bed into the supine position. The tourniquet was then reinflated to 325 mmHg. The foot was then reprepped and draped in sterile fashion. A 5 cm incision was then made over the medial malleolus. Blunt dissection was carried down through subcutaneous superficial fascia to the level of the medial malleolar fracture. Hematoma formation was visualized within the fracture. It was removed using rongeur, curette, dental pick. The medial malleolus fracture was then reduced and this was confirmed on C-arm imaging as well as clinically. It was then temporarily fixated with 2 guidewires. The guidewires were overdrilled before two 4.0 cannulated short thread headed screws were inserted across the fracture site. Good positioning of the screws were noted. The wires were removed and the incision site was irrigated with copious amounts of sterile saline. Attention was then directed to closure. Deep tissue was closed with 2-0 Vicryl followed by subcuticular closure with 3-0 Vicryl and skin closure with skin anderson. The pin site holes of the foot were then closed with skin anderson. The tourniquet was let down and good hyperemic response was noted to all digits of the right foot. The incision sites were then dressed with Xeroform, 4 x 4 gauze, Kerlix before being placed in a well-padded below the knee posterior splint. The patient tolerated the procedure and anesthesia well and without complication. The patient was transported from the operating room to the recovery room with vital signs stable and vascular status intact to all digits of the right foot. The patient was given both written and verbal instructions to remain strict nonweightbearing to the operative extremity, to keep dressings/splint clean, dry and intact and to take pain medication as directed. The patient will follow-up in the outpatient setting at their scheduled appointment. The patient was discharged with my personal number and was instructed to call if any questions or issues should arise. They were discharged home once anesthesia criteria was met.
== END 2022-11-13 11:35 | disposition home or self-care (01) ==
PROVIDERS: PCP Nurse Practitioner Family; Visit Provider Podiatrist Foot & Ankle Surgery
PROC: (CPT 20694; principal; 2022-11-13 07:00)
PROC: (CPT 20694; 2022-11-13 07:00)
DX: S82.851A Displaced trimalleolar fracture of right lower leg, initial encounter for closed fracture (principal); X58.XXXA Exposure to other specified factors, initial encounter; Z79.891 Long term (current) use of opiate analgesic; F17.200 Nicotine dependence, unspecified, uncomplicated; R05.9 Cough, unspecified; I10 Essential (primary) hypertension; F41.9 Anxiety disorder, unspecified
CPT/HCPCS: 20694; 27823; 73600; 73610; 76000; C1713; C1773; J0131; J0690; J1100; J1170; J2250; J2370; J2405; J2704; J2795; J3010; J3490; J7030

== ENCOUNTER → 2022-11-26 13:55 | Outpatient (BNVA) | payer MEDICAID, SELFPAY | PROVIDERS: PCP Nurse Practitioner Family; Visit Provider Podiatrist Foot & Ankle Surgery | DX: Z98.890 Other specified postprocedural states (principal); S82.851D Displaced trimalleolar fracture of right lower leg, subsequent encounter for closed fracture with routine healing; X58.XXXD Exposure to other specified factors, subsequent encounter; Z48.89 Encounter for other specified surgical aftercare | CPT/HCPCS: 73610 ==

== ENCOUNTER 2022-12-02 10:00 | Day surgery (SDC) | payer MEDICAID, SELFPAY ==
[2022-12-01 16:04] VITALS: BMI 33.7
[2022-12-02 10:34] VITALS: TEMP 36.2
--- NOTE | 2022-12-02 10:41 | P.PN_ITS ---
Subjective Subjective: This patient was admitted for an interval appendectomy. The patient is done well. Medications: Reviewed: Yes Vitals/I&O/Wt Last Vital Signs Temp 97.2 F L 12/02/22 10:34 Weight last 48 hrs Weight 200 lb Physical Exam Narrative: Abdomen benign postop. Data 12/02/22 10:40 12/02/22 10:40 A&P Assessment and plan (1) Acute appendicitis: -This patient has undergone a laparoscopic appendectomy/interval appendectomy. The patient is doing well. We will discharge the patient home from the post anesthesia recovery room Attestations Medical Necessity Statement*: This patient is ready for discharge home Coding Level of Care Code Acute Code for [facility] Diagnoses Acute appendicitis K35.80
--- NOTE | 2022-12-02 10:41 | PM.HP ---
Providers/Chief Complaint Admitting Physician: Renny Primary Care Provider: Sharif Riddle Chief Complaint: Abdominal pain History of Present Illness Kristi Villar is a 47 year old female presented with a perforated acute appendicitis in September. She required an IR drain for an abscess. She is afebrile. She presents for an interval appendectomy. Review of Systems General: Reports: 10 or more systems reviewed and unremarkable except in HPI and below Medications/Allergies Home Medications Medication Instructions Recorded Confirmed Last Taken Type Cam Walker #1 ea 10/31/20 11/26/22 Unknown Rx acetaminophen 500 mg tablet 1,000 mg PO Q6H PRN Pain 10/02/22 12/01/22 11/30/22 History wheelchair #1 ea 10/30/22 11/26/22 Unknown Rx ibuprofen 800 mg tablet 800 mg PO Q6H PRN pain #28 tabs 10/31/22 12/01/22 12/01/22 20:00 Rx atenolol 50 mg tablet 50 mg PO BID #60 tabs 11/06/22 12/02/22 12/02/22 07:00 Rx ibuprofen 800 mg tablet 800 mg PO Q6H PRN Surgery 7 days 11/13/22 12/01/22 1 Day Ago Rx #28 tabs ~11/30/22 Allergies Allergy/AdvReac Type Severity Reaction Status Date / Time morphine Allergy Unknown Verified 12/01/22 15:59 PFSH Acute PFSH: Medical History (Updated 12/02/22 @ 10:49 by Baldev Lawson MD) Acute appendicitis Ankle fracture Dental abscess Fracture of ankle, lateral malleolus, left, closed HTN (hypertension) Leukocytosis Pain in right ankle Perforated appendicitis Perforated appendicitis Surgical History H/O: hysterectomy History of laparoscopic cholecystectomy History of nasal surgery Family History Father CAD (coronary artery disease) Hypertension Mother CAD (coronary artery disease) Hypertension Seizures Social History Smoking and tobacco status: current some day smoker Alcohol intake: former Vitals/I&O/Wt Last Vital Signs Temp 97.2 F L 12/02/22 10:34 Weight last 48 hrs Weight 200 lb Physical Exam Narrative: Gen: NAD HEENT: NC/AT Neck - FROM. No masses Lungs - clear CV - RRR Abd - soft, obese, no masses. Nontender. Extrems - no clubbing, cyanosis or edema Neuro - awake, alert, oriented x 3, moves all 4's. sensation intact. A&P Assessment and plan (1) Acute appendicitis: risks and benefits of lap appy have been explained to the patient. She seems to understand and would like to proceed. Attestations Medical Necessity Statement*: admit for lap appy Coding Level of Care Code 45044 Diagnoses Acute appendicitis K35.80
--- NOTE | 2022-12-02 10:50 | ANES.PREANE2 ---
Pre-Anesthetic Assessment Height/Weight: Height 1.64 m Weight 90.718 kg Temp O2 Del Method 97.2 F L Room Air 12/02/22 10:34 12/02/22 10:47 Operation Date: 12/02/22 12:00 Proposed Procedures p lap appy [id number],K35.32(Not Applicable) - Baldev Lawson MD Familial anesthetic complications: none Was Beta Jann taken within 24 hours: Yes Was Clonidine taken within 24 hours: N/A Social Tobacco (recently quit) and No alcohol Exam alert, oriented x 3 and regular rate & rhythm Airway Submandibular: within normal limits Cervical ROM: within normal limits Mallampati: Class II Dentition: chipped Comments: Comments: Missing #23 Pulmonary Chronic Obstructive Pulmonary Disease CV/HEM Hypertension Metabolic Morbid Obesity Neuropsych Anxiety Anesthetic Plan ASA status: 3 Anesthesia: General Medications/Allergies Home Medications Medication Instructions Recorded Confirmed Last Taken Type Cam Walker #1 ea 10/31/20 11/26/22 Unknown Rx acetaminophen 500 mg tablet 1,000 mg PO Q6H PRN Pain 10/02/22 12/01/22 11/30/22 History wheelchair #1 ea 10/30/22 11/26/22 Unknown Rx ibuprofen 800 mg tablet 800 mg PO Q6H PRN pain #28 tabs 10/31/22 12/01/22 12/01/22 20:00 Rx atenolol 50 mg tablet 50 mg PO BID #60 tabs 11/06/22 12/02/22 12/02/22 07:00 Rx ibuprofen 800 mg tablet 800 mg PO Q6H PRN Surgery 7 days 11/13/22 12/01/22 1 Day Ago Rx #28 tabs ~11/30/22 Allergies Allergy/AdvReac Type Severity Reaction Status Date / Time morphine Allergy Unknown Verified 12/01/22 15:59 PFSH Anesthesia Medical History (Updated 12/02/22 @ 10:49 by Baldev Lawson MD) Acute appendicitis Ankle fracture Dental abscess Fracture of ankle, lateral malleolus, left, closed HTN (hypertension) Leukocytosis Pain in right ankle Perforated appendicitis Perforated appendicitis Surgical History H/O: hysterectomy History of laparoscopic cholecystectomy History of nasal surgery Family History Father CAD (coronary artery disease) Hypertension Mother CAD (coronary artery disease) Hypertension Seizures Social History Smoking and tobacco status: current some day smoker Alcohol intake: former Data Anesthesia Cardiac Studies: No Data to Display
[2022-12-02] MEDS: sodium chloride 0.9% 1,000 ML 30 ML IV (10:56)
[2022-12-02 11:13] LABS: Basophils # 0.1 10^3/uL (0.0-0.1); Basophils % 0.7 %; Eosinophils # 0.2 10^3/uL (0.0-0.8); Eosinophils % 3.6 %; Hematocrit 38.2 % (37.0-47.0); Hemoglobin 12.6 g/dL (11.5-15.3); Lymphocytes # 2.8 10^3/uL (0.8-4.8); Lymphocytes % 41.2 %; Mean Corpuscular Hemoglobin 29.2 pg (28.0-34.0); Mean Corpuscular Volume 88.4 fl (81-99); Mean Platelet Volume 10.5 fL (7.4-10.4); Monocytes # 0.4 10^3/uL (0.2-0.9); Monocytes % 5.2 %; Neutrophils # 3.29 10^3/uL (1.8-7.7); Neutrophils % 48.9 %; Nucleated Red Blood Cells % 0 %; Platelet Count 408 10^3/cmm (130-400); Red Blood Count 4.32 10^6/uL (4.1-5.3); White Blood Count 6.7 10^3/uL (4.0-10.0)
[2022-12-02 11:30] LABS: Anion Gap 14.8 (5-19); Blood Urea Nitrogen 9 mg/dL (6-20); Calcium 9.2 mg/dL (8.5-10.5); Carbon Dioxide 23 mmol/L (22-29); Chloride 109 mmol/L (98-107); Glomerular Filtration Rate 67.7 mL/min (90-130); Glucose 95 mg/dL (65-115); Osmolality Calculated 294 mOsm/kg (285-295); Potassium 3.8 mmol/L (3.5-5.1); Sodium 143 mmol/L (136-145)
[2022-12-02] MEDS: HYDROmorphone 1 mg/mL INJ 1 mL 0.5 MG IVP (11:44)
--- NOTE | 2022-12-02 11:44 | SUR.PREOP ---
11:44 PT MEDICATED FOR LEFT LEG PAIN AND ANXIETY PER DOCTOR RANDY.
[2022-12-02] MEDS: ceFAZolin 2,000 MG in sodium chloride 0.9% (plus) 50 ML 100 MG IV (12:06)
[2022-12-02] MEDS: lidocaine 1% INJ 10 mL (per mL) 30 ML XX (12:31)
[2022-12-02 13:10] VITALS: BP 115/79; PULSE 80; RESP 17; TEMP 36.1; O2SAT 91
--- NOTE | 2022-12-02 13:13 | P.OP_ITS ---
Operative Report Date of procedure: December 02, 2022 Pre-op diagnosis: acute appy Post-op diagnosis: same Procedure done: Laparoscopic appendectomy Specimens removed/disposition: Appendix Pathology: Appendix sent to pathology Surgeon: Baldev Lawson Anesthesia: General Estimated blood loss (mL): 5 Complications: None noted Findings: Inflammatory changes in the area of the cecum/appendix. The appendix was located and removed without difficulty. The appendiceal stump was flush with the cecum. Condition: stable Disposition: PACU Brief History: This is a 47-year-old female who presented with perforated appendicitis. The patient was treated nonoperatively. The patient required an IR drain for an intra-abdominal abscess. The patient presents now for an interval appendectomy. The risk and benefits of interval appendectomy been explained to the patient. The patient seems understand the risk and benefits and would like to proceed. Procedure: Procedure in detail: Patient was brought to the operative room placed in supine position. The patient's abdomen was then prepped and draped in usual sterile fashion. Now, a timeout was performed. The patient's identifiers as well as the goals procedure were discussed. Everyone in room agreed. A Veress needle was placed in the patient's left upper quadrant. The patient's abdomen was insufflated to 15 mmHg. Now, because the patient has had previous laparoscopic surgery and incision was made in the patient's left lower quadrant. 1% lidocaine without epinephrine was used anesthetize the skin and the underlying subcutaneous tissues and fascia. After the incision was made a 15 mm port was placed through this incision into the abdomen. The scope was now placed through this port. The left upper quadrant was inspected. There is no injuries. The Veress needle was now removed. Now once I inspected near the umbilicus. There was no adhesions around the umbilicus. 1% lidocaine without epinephrine was used anesthetize the skin in the superior aspect of the umbilicus. A curvilinear incision was made with the 11 blade knife. Hemostat was used to dissect down through the subcutaneous tissues. Lidocaine was again used anesthetize the fascia and then a 12 mm port was placed through this wound into the abdomen under direct vision. The camera was moved to this port. The patient had some adhesions these were bluntly taken down with a [place]. This exposed the patient's cecum. Now I was able to place a 5 mm port in the patient's right lower quadrant just above the symphysis pubis this was done under direct vision. 1% lidocaine without epinephrine was also used anesthetize the skin and the underlying subcutaneous tissues. Now the patient was placed in Trendelenburg and rolled with the left side down the right side up. Now that the cecum was located. A Cataumet was placed on the cecum and then blunt dissection with a Maryland revealed the appendix. The Cataumet was placed on the appendix a window was created in the mesoappendix with the [place] and then through this window a KRISTY stapler was placed and fired across the base of the appendix. This amputated the appendix. I did use a blue load to transect the appendix. Now, a white load was used to transect the mesoappendix. The appendix was now placed in an Endobag. The patient was now flattened out. There was minimal blood loss. There was no bleeding from the appendiceal stump. The appendiceal stump was flush with the cecum. There was no bleeding from the mesoappendix. The Endobag was pulled out of the left lower quadrant incision. The patient's abdomen is allowed to deflate. The 5 mm port was now removed. There was no bleeding from the port site. Finally the umbilical port was removed. 0 Vicryl was used to reapproximate the fascia at both 12 mm port incisions. The patient is morbidly obese. This was somewhat difficult. But I think the fascia was well approximated. And then 4-0 Monocryl was used in a running fashion to close the skin. Dermabond was applied. The patient was allowed to awaken and was taken recovery room in stable condition. Following procedure I spoke to the patient and the patient's daughter explained to them the above findings. All questions were addressed.
[2022-12-02 13:15] VITALS: BP 117/76; PULSE 76; RESP 15; O2SAT 100
[2022-12-02 13:23] VITALS: BP 117/80; PULSE 80; RESP 10; TEMP 36.1; O2SAT 98
[2022-12-02 13:30] VITALS: BP 107/85; PULSE 78; RESP 14; TEMP 36.2; O2SAT 98
[2022-12-02 14:10] VITALS: BP 124/87; PULSE 74; RESP 16; TEMP 36.6; O2SAT 100
--- NOTE | 2022-12-02 14:28 | SUR.PHASEII ---
14:10 abdomen soft and non tender, laparoscopic sites intact, no redness or drainage.
--- NOTE | 2022-12-02 14:56 | ANE.PACU2 ---
Inpatient post-anesthesia follow up: Airway intact: Yes Vital signs: Temperature 97.9 F Pulse Rate 74 Respiratory Rate 16 Blood Pressure 124/87 Pulse Oximetry 100 Oxygen Delivery Me thod Room Air Oxygen Flow Rate 6 Fraction of Inspir ed Oxygen Hydration adequate: Yes Nausea and vomiting: No Pain level: 4 Mental status: Baseline
--- NOTE | 2022-12-04 13:46 | SUR.PHASEII ---
patient called today 12/04 stating her pain medication she was given post op on 12/02 makes her sick when she takes it. Dr. Lawson called, he advises to not take it and tell her to take tylenol and motrin for pain instead. This was relayed to the patient. no new orders received.
== END 2022-12-02 14:20 | disposition home or self-care (01) ==
PROVIDERS: PCP Nurse Practitioner Family; Visit Provider Surgery Surgical Critical Care
PROC: 0DTJ4ZZ Resection of Appendix, Percutaneous Endoscopic Approach (ICD-10-PCS; CPT 44970; principal; 2022-12-02 12:00)
DX: K35.80 Unspecified acute appendicitis (principal); J44.9 Chronic obstructive pulmonary disease, unspecified; I10 Essential (primary) hypertension; E66.01 Morbid (severe) obesity due to excess calories; Z68.33 Body mass index [BMI] 33.0-33.9, adult; F41.9 Anxiety disorder, unspecified; F17.200 Nicotine dependence, unspecified, uncomplicated
CPT/HCPCS: 47562; 36415; 80048; 85025; 88304; J0330; J0690; J1100; J1170; J2250; J2405; J2704; J2710; J3010; J3490; J7030

== ENCOUNTER 2022-12-08 16:02 | Outpatient (CLI) | payer MEDICAID, SELFPAY | END 2022-12-08 16:03 | disposition home or self-care (01) | LOC: SPT 16:03 | PROVIDERS: PCP Nurse Practitioner Family; Visit Provider Podiatrist Foot & Ankle Surgery | DX: Z46.89 Encounter for fitting and adjustment of other specified devices (principal); S82.851D Displaced trimalleolar fracture of right lower leg, subsequent encounter for closed fracture with routine healing; Z98.890 Other specified postprocedural states; X58.XXXD Exposure to other specified factors, subsequent encounter | CPT/HCPCS: 97760; L4361 ==

== ENCOUNTER → 2022-12-23 14:34 | Outpatient (BNVA) | payer MEDICAID, SELFPAY | PROVIDERS: PCP Nurse Practitioner Family; Visit Provider Podiatrist Foot & Ankle Surgery | DX: M25.571 Pain in right ankle and joints of right foot (principal); Z48.89 Encounter for other specified surgical aftercare | CPT/HCPCS: 73610 ==

== ENCOUNTER → 2023-01-07 14:27 | Outpatient (BNVA) | payer MEDICAID, SELFPAY | PROVIDERS: PCP Nurse Practitioner Family; Visit Provider Podiatrist Foot & Ankle Surgery | DX: M25.571 Pain in right ankle and joints of right foot (principal); Z98.890 Other specified postprocedural states | CPT/HCPCS: 73610 ==

== ENCOUNTER 2023-01-27 16:13 | Outpatient (CLI) | payer MEDICAID, SELFPAY | END 2023-01-27 16:14 | disposition home or self-care (01) | LOC: SPT 16:13 | PROVIDERS: PCP Nurse Practitioner Family; Visit Provider Podiatrist Foot & Ankle Surgery | DX: Z46.89 Encounter for fitting and adjustment of other specified devices (principal); Z98.890 Other specified postprocedural states | CPT/HCPCS: 97760; L1902 ==